=== PATIENT | male | born 1950 | race Caucasian/White ===

== ENCOUNTER 2017-09-05 16:50 | Inpatient (IN) | payer MEDICARE ==
[~2017-09-05] VITALS: Ht 185.4 cm; Wt 84.9 kg
--- NOTE | 2017-09-05 17:23 | EKG ---
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
[2017-09-05 17:29] LABS: BASO # 0.1 x10^3/uL (0.0-0.2); BASO % 1 % (0-3); EOS # 0.3 x10^3/uL (0.0-0.7); EOS % 3 % (0-3); HEMATOCRIT 43.3 % (39.0-53.0); HEMOGLOBIN 14.8 g/dL (13.0-17.5); LYMPH # 1.5 x10^3/uL (1.0-4.8); LYMPH % 19 % (24-48); MEAN CORPUSCULAR HEMOGLOBIN 33 pg (25-35); MEAN CORPUSCULAR HGB CONC 34 g/dL (31-37); MEAN CORPUSCULAR VOLUME 95 fL (79-100); MONO # 1.2 x10^3/uL (0.0-1.1); MONO % 16 % (0-9); NEUT # 4.7 x10^3uL (1.8-7.7); NEUT % 61 % (31-73); PLATELET COUNT 185 x10^3/uL (140-400); RED BLOOD COUNT 4.54 x10^6/uL (4.30-5.70); RED CELL DISTRIBUTION WIDTH 13.7 % (11.5-14.5); WHITE BLOOD COUNT 7.8 x10^3/uL (4.0-11.0)
[2017-09-05 17:35] LABS: BACTERIA,URINE 0 /HPF (0-FEW); BILIRUBIN,URINE NEG (NEG); CLARITY,URINE CLEAR; COLOR,URINE YELLOW; GLUCOSE,URINE NEG (NEG); NITRITE,URINE NEG (NEG); RBC,URINE 0 /HPF (0-2); UROBILINOGEN,URINE 0.2 mg/dL (0.2 mg/dL); WBC,URINE 0 /HPF (0-4)
[2017-09-05 17:39] LABS: ALBUMIN/GLOBULIN RATIO 0.8 (1.0-1.7); CALCIUM 9.1 mg/dL (8.5-10.1); CREATININE 1.5 mg/dL (0.7-1.3); GFR 46.7; MAGNESIUM 2.1 mg/dL (1.8-2.4); POTASSIUM 4.2 mmol/L (3.5-5.1); TOTAL BILIRUBIN 0.5 mg/dL (0.2-1.0); TOTAL PROTEIN 6.9 g/dL (6.4-8.2)
--- NOTE | 2017-09-05 17:45 | PHYS DOC ---
Past History Past Medical History: Dementia, DVT Past Surgical History: Hip Replacement Alcohol Use: Occasionally Drug Use: None Adult General Chief Complaint Chief Complaint: PSYCH EVALUATION HPI HPI 66-year-old male patient resident of independent living home brought in by his mother because of increasing agitation and behavioral problem for senior psych placement and medical clearance. Patient denies any problem and suicidal and homicidal ideation or hallucination. Review of Systems Review of Systems Constitutional: Denies fever or chills [] Eyes: Denies change in visual acuity, redness, or eye pain [] HENT: Denies nasal congestion or sore throat [] Respiratory: Denies cough or shortness of breath [] Cardiovascular: No additional information not addressed in HPI [] GI: Denies abdominal pain, nausea, vomiting, bloody stools or diarrhea [] : Denies dysuria or hematuria [] Musculoskeletal: Denies back pain or joint pain [] Integument: Denies rash or skin lesions [] Neurologic: Denies headache, focal weakness or sensory changes [] Endocrine: Denies polyuria or polydipsia [] All other systems were reviewed and found to be within normal limits, except as documented in this note. Allergies Allergies Allergies Coded Allergies Type Severity Reaction Last Updated Verified No Known Drug Allergies 09/05/17 No Physical Exam Physical Exam Constitutional: Well nourished, no acute distress, non-toxic appearance. [] HENT: Normocephalic, atraumatic, oropharynx moist, no oral exudates, nose normal. [] Eyes: PERRLA, EOMI, conjunctiva normal, no discharge. [] Neck: Normal range of motion, no tenderness, supple, no stridor. [] Cardiovascular:Heart rate regular rhythm, no murmur [] Lungs & Thorax: Bilateral breath sounds clear to auscultation [] Abdomen: Bowel sounds normal, soft, no tenderness, no masses, no pulsatile masses. [] Skin: Warm, dry, no erythema, no rash. [] Back: No tenderness, no CVA tenderness. [] Extremities: No tenderness, no cyanosis, no clubbing, ROM intact, bilateral lower extremity edema as a chronic problem Neurologic: Alert and oriented X 3, normal motor function, normal sensory function, no focal deficits noted. [] Psychologic: Affect normal, judgement normal, mood normal. [] Current Patient Data Vital Signs Vital Signs Date Time Temp Pulse Resp B/P (MAP) Pulse Ox O2 Delivery O2 Flow Rate FiO2 09/05/17 17:17 98.1 74 18 97 Room Air Lab Results Laboratory Tests Test 09/05/17 17:06 09/05/17 17:08 White Blood Count 7.8 x10^3/uL (4.0-11.0) Red Blood Count 4.54 x10^6/uL (4.30-5.70) Hemoglobin 14.8 g/dL (13.0-17.5) Hematocrit 43.3 % (39.0-53.0) Mean Corpuscular Volume 95 fL (79-100) Mean Corpuscular Hemoglobin 33 pg (25-35) Mean Corpuscular Hemoglobin Concent 34 g/dL (31-37) Red Cell Distribution Width 13.7 % (11.5-14.5) Platelet Count 185 x10^3/uL (140-400) Neutrophils (%) (Auto) 61 % (31-73) Lymphocytes (%) (Auto) 19 % (24-48) L Monocytes (%) (Auto) 16 % (0-9) H Eosinophils (%) (Auto) 3 % (0-3) Basophils (%) (Auto) 1 % (0-3) Neutrophils # (Auto) 4.7 x10^3uL (1.8-7.7) Lymphocytes # (Auto) 1.5 x10^3/uL (1.0-4.8) Monocytes # (Auto) 1.2 x10^3/uL (0.0-1.1) H Eosinophils # (Auto) 0.3 x10^3/uL (0.0-0.7) Basophils # (Auto) 0.1 x10^3/uL (0.0-0.2) Urine Collection Type Unknown Urine Color Yellow Urine Clarity Clear Urine pH 7.5 Urine Specific [place] 1.015 Urine Protein Neg (NEG-TRACE) Urine Glucose (UA) Neg mg/dL (NEG) Urine Ketones (Stick) Neg mg/dL (NEG) Urine Blood Neg (NEG) Urine Nitrite Neg (NEG) Urine Bilirubin Neg (NEG) Urine Urobilinogen Dipstick 0.2 mg/dL (0.2 mg/dL) Urine Leukocyte Esterase Neg (NEG) Urine RBC 0 /HPF (0-2) Urine WBC 0 /HPF (0-4) Urine Squamous Epithelial Cells None /LPF Urine Bacteria 0 /HPF (0-FEW) EKG EKG EKG interpreted by me. EKG at 1716 showed normal sinus rhythm at rate of 65, poor R-wave progress in anteroseptal leads, no acute ST and T-wave abnormalities [] Radiology/Procedures Radiology/Procedures [] Course & Med Decision Making Course & Med Decision Making Evaluation of patient in ER showed 66-year-old male patient brought in by family member for medical clearance for senior [facility] admission. Patient denies suicidal and homicidal ideation and had unremarkable physical exam and labs. Dragon Disclaimer Dragon Disclaimer This electronic medical record was generated, in whole or in part, using a voice recognition dictation system. Departure Departure: Impression: Primary Impression: Medical clearance for psychiatric admission Disposition: ADMITTED INPATIENT (at 1744) Condition: STABLE Referrals: NON,STAFF (PCP) RAJ SHELDON MD Sep 05, 2017 17:45
[2017-09-05] MEDS ORDERED: METHYL SALICYLATE/MENTHOL TOPICAL OINTMENT 29GM TUBE. TP PRN (19:00)
[2017-09-05] MEDS ORDERED: MAGNESIUM HYDROXIDE 2,400 MG/30 ML ORAL.SUSP. PO PRN (19:00)
[2017-09-05] MEDS ORDERED: MAG HYDROX/AL HYDROX/SIMETH 30 ML ORAL.SUSP PO PRN (19:00)
[2017-09-05] MEDS ORDERED: SENN-79 PO (19:48)
[2017-09-05] MEDS ORDERED: MULT1TAB52 PO (19:48)
[2017-09-05] MEDS ORDERED: DIVA500T2 PO (19:48)
[2017-09-05] MEDS ORDERED: CITA20TA6 PO (19:48)
[2017-09-05] MEDS ORDERED: LEVO175T5 PO (19:48)
[2017-09-05] MEDS ORDERED: MELA3TAB2 PO (19:48)
[2017-09-05] MEDS ORDERED: CALC-98 PO (19:48)
[2017-09-05] MEDS ORDERED: QUET50TA5 PO (19:48)
[2017-09-05] MEDS ORDERED: FENO48TA16 PO (19:48)
[2017-09-05] MEDS ORDERED: DICL100G18 TP (19:48)
[2017-09-05] MEDS ORDERED: MAGN400T3 PO (19:48)
[2017-09-05] MEDS ORDERED: DONE5TAB7 PO (19:48)
[2017-09-05] MEDS ORDERED: UBID100C PO (19:48)
[2017-09-05] MEDS ORDERED: RIVA10TA PO (19:48)
[2017-09-05] MEDS ORDERED: MEMA10TA PO (19:48)
[2017-09-05] MEDS ORDERED: CYAN10005 PO (19:48)
[2017-09-05] MEDS ORDERED: OMEP20TA8 PO (19:48)
[2017-09-05] MEDS ORDERED: TRAZ-85 PO (19:48)
[2017-09-05] MEDS ORDERED: DIVA-53 PO (19:48)
[2017-09-05] MEDS ORDERED: KETO120S TP (19:48)
[2017-09-05] MEDS ORDERED: DOCU100C28 PO (19:48)
[2017-09-05] MEDS ORDERED: HYDR28CR62 TP (19:48)
--- NOTE | 2017-09-05 20:00 | PDOC ---
Exam Note: Jean Marie Note: Please also refer to the separate dictated note~for this date of service dictated separately.~Patient seen individually. Discussed the patient with Nursing staff reviewed the chart.~Reviewed interim history and current functioning. Reviewed vital signs,~Labs/ Radiology~and current medications noted below. Continue current treatment with the changes noted in the dictated addendum note Assessment: Vital Signs: Vital Signs Date Time Temp Pulse Resp B/P (MAP) Pulse Ox O2 Delivery O2 Flow Rate FiO2 09/05/17 17:17 98.1 74 18 97 Room Air Labs: Laboratory Tests Test 09/05/17 17:06 09/05/17 17:08 White Blood Count 7.8 x10^3/uL (4.0-11.0) Red Blood Count 4.54 x10^6/uL (4.30-5.70) Hemoglobin 14.8 g/dL (13.0-17.5) Hematocrit 43.3 % (39.0-53.0) Mean Corpuscular Volume 95 fL (79-100) Mean Corpuscular Hemoglobin 33 pg (25-35) Mean Corpuscular Hemoglobin Concent 34 g/dL (31-37) Red Cell Distribution Width 13.7 % (11.5-14.5) Platelet Count 185 x10^3/uL (140-400) Neutrophils (%) (Auto) 61 % (31-73) Lymphocytes (%) (Auto) 19 % (24-48) L Monocytes (%) (Auto) 16 % (0-9) H Eosinophils (%) (Auto) 3 % (0-3) Basophils (%) (Auto) 1 % (0-3) Neutrophils # (Auto) 4.7 x10^3uL (1.8-7.7) Lymphocytes # (Auto) 1.5 x10^3/uL (1.0-4.8) Monocytes # (Auto) 1.2 x10^3/uL (0.0-1.1) H Eosinophils # (Auto) 0.3 x10^3/uL (0.0-0.7) Basophils # (Auto) 0.1 x10^3/uL (0.0-0.2) Sodium Level 142 mmol/L (136-145) Potassium Level 4.2 mmol/L (3.5-5.1) Chloride Level 102 mmol/L (98-107) Carbon Dioxide Level 28 mmol/L (21-32) Anion Gap 12 (6-14) Blood Urea Nitrogen 15 mg/dL (8-26) Creatinine 1.5 mg/dL (0.7-1.3) H Estimated GFR (Cockcroft-Gault) 46.7 BUN/Creatinine Ratio 10 (6-20) Glucose Level 78 mg/dL (70-99) Calcium Level 9.1 mg/dL (8.5-10.1) Magnesium Level 2.1 mg/dL (1.8-2.4) Total Bilirubin 0.5 mg/dL (0.2-1.0) Aspartate Amino Transferase (AST) 42 U/L (15-37) H Alanine Aminotransferase (ALT) 34 U/L (16-63) Alkaline Phosphatase 71 U/L (46-116) Total Protein 6.9 g/dL (6.4-8.2) Albumin 3.0 g/dL (3.4-5.0) L Albumin/Globulin Ratio 0.8 (1.0-1.7) L Urine Collection Type Unknown Urine Color Yellow Urine Clarity Clear Urine pH 7.5 Urine Specific [place] 1.015 Urine Protein Neg (NEG-TRACE) Urine Glucose (UA) Neg mg/dL (NEG) Urine Ketones (Stick) Neg mg/dL (NEG) Urine Blood Neg (NEG) Urine Nitrite Neg (NEG) Urine Bilirubin Neg (NEG) Urine Urobilinogen Dipstick 0.2 mg/dL (0.2 mg/dL) Urine Leukocyte Esterase Neg (NEG) Urine RBC 0 /HPF (0-2) Urine WBC 0 /HPF (0-4) Urine Squamous Epithelial Cells None /LPF Urine Bacteria 0 /HPF (0-FEW) Current Medications: Meds: Current Medications Acetaminophen (Tylenol) 650 mg PRN Q6HRS PRN PO PAIN / TEMP; Start 09/05/17 at 19:00 Multi-Ingredient Ointment (Analgesic [place]) 1 corina PRN QID PRN TP MUSCLE PAIN; Start 09/05/17 at 19:00 Al Hydroxide/Mg Hydroxide (Mylanta Plus Xs) 15 ml PRN AFTMEALHC PRN PO DYSPEPSIA; Start 09/05/17 at 19:00 Magnesium Hydroxide (Milk Of Magnesia) 2,400 mg PRN QHS PRN PO CONSTIPATION; Start 09/05/17 at 19:00 Citalopram Hydrobromide (CeleXA) 20 mg DAILY PO ; Start 09/06/17 at 09:00; Status UNV Donepezil HCl (Aricept) 5 mg DAILY PO ; Start 09/06/17 at 09:00; Status UNV Non-Formulary Medication (Divalproex Sodium ) 750 mg QEVNG PO ; Start 09/06/17 at 18:00; Status UNV Non-Formulary Medication (Divalproex Sodium (Depakote)) 500 mg BID PO ; Start at 21:00; Status UNV Non-Formulary Medication (Melatonin ) 3 mg DAILY PO ; Start 09/06/17 at 09:00; Status UNV Non-Formulary Medication (Memantine Hcl (Namenda)) 10 mg BID PO ; Start at 21:00; Status UNV Non-Formulary Medication (Quetiapine Fumarate (Seroquel)) 50 mg QHS PO ; Start 09/05/17 at 21:00; Status UNV Non-Formulary Medication (Trazodone Hcl ) 50 mg QHS PO ; Start 09/05/17 at 21:00 ; Status UNV Active Scripts Active Reported Vitamin B-12 (Cyanocobalamin (Vitamin B-12)) 1,000 Mcg Tablet 1,000 Mcg PO Ketoconazole 120 Ml Shampoo 1 Corina TP DAILY Divalproex Sodium 500 Mg Tablet.dr 750 Mg PO QEVNG Voltaren (Diclofenac Sodium) 100 Gm Gel..gram. 4 Gm TP PRN TID PRN Multivitamins (Multivitamin) 1 Each Tablet 1 Tab PO DAILY Trazodone Hcl 50 Mg Tablet 50 Mg PO QHS Senna (Sennosides) 8.6 Mg Tablet 8.6 Mg PO DAILY Xarelto (Rivaroxaban) 10 Mg Tablet 15 Mg PO DAILY Seroquel (Quetiapine Fumarate) 50 Mg Tablet 50 Mg PO QHS Omeprazole 20 Mg Tablet.dr 20 Mg PO DAILY Namenda (Memantine Hcl) 10 Mg Tablet 10 Mg PO BID Melatonin 3 Mg Tablet 3 Mg PO DAILY Magnesium Oxide 400 Mg Tablet 400 Mg PO DAILY Levothyroxine Sodium 175 Mcg Tablet 175 Mcg PO DAILY07 Cortizone-10 1% Creme (Hydrocortisone/Aloe Vera) 28 Gm Cream..g. 1 Corina TP BID Tricor (Fenofibrate Nanocrystallized) 48 Mg Tablet 48 Mg PO DAILY Donepezil Hcl 5 Mg Tablet 5 Mg PO DAILY 5 Days Docusate Sodium 100 Mg Capsule 100 Mg PO BID Depakote (Divalproex Sodium) 500 Mg Tablet.dr 500 Mg PO BID Coenzyme Q10 (Ubidecarenone) 100 Mg Capsule 100 Mg PO DAILY Citalopram Hbr (Citalopram Hydrobromide) 20 Mg Tablet 20 Mg PO DAILY Calcium + Vitamin D Tablet (Calcium Carbonate/Vitamin D3) 1 Each Tablet 1 Tab PO BID I have reviewed the current psychotropics carefully including drug interactions. Risk benefit ratio favors no change other than as noted in my dictated progress note. Diagnosis: Problems: (1) Anxiety disorder (2) Major neurocognitive disorder (3) Major depressive disorder, recurrent episode (4) Frontotemporal dementia with behavioral disturbance YONI LAURA MD Sep 05, 2017 20:00
[2017-09-05] MEDS: HYDROCORTISONE 1% TOPICAL CREAM 30GM TUBE. TP SCH (21:00)
[2017-09-05] MEDS: QUEtiapine 50 MG TABLET. PO SCH (21:50)
[2017-09-05] MEDS: DIVALPROEX ER 250 MG TAB.ER.24H. PO SCH (21:51)
[2017-09-05] MEDS: MEMANTINE 10 MG TABLET. PO SCH (21:51)
[2017-09-05] MEDS: traZODone 50 MG TABLET. PO SCH (21:51)
[2017-09-05] MEDS: DIVALPROEX ER 500 MG TAB.ER.24H PO SCH (21:52)
[2017-09-05] MEDS: DOCUSATE SODIUM 100 MG CAPSULE PO SCH (21:52)
[2017-09-05] MEDS: MELATONIN 3 MG TABLET PO SCH (21:52)
[2017-09-06 00:53] VITALS: BP 141/80
[2017-09-06 05:48] VITALS: BP 124/65
[2017-09-06] MEDS: LEVOTHYROXINE 175 MCG TABLET PO SCH (06:22)
[2017-09-06 07:32] LABS: VAL ACID 63 mcg/mL (50-100)
[2017-09-06] MEDS: DOCUSATE SODIUM 100 MG CAPSULE PO SCH ×2 (08:07→19:43)
[2017-09-06] MEDS: MEMANTINE 10 MG TABLET. PO SCH ×2 (08:07→19:43)
[2017-09-06] MEDS: RIVAROXABAN 15 MG TABLET. PO SCH (08:12)
[2017-09-06] MEDS: MULTIVITAMIN with MINERAL TABLET. PO SCH (08:12)
[2017-09-06] MEDS: CALCIUM CARB/VIT D3 500/200 TABLET PO SCH ×2 (08:12→17:09)
[2017-09-06] MEDS: MAGNESIUM OXIDE 400 MG TABLET PO SCH (08:13)
[2017-09-06] MEDS: DIVALPROEX ER 250 MG TAB.ER.24H. PO SCH ×2 (08:13→19:43)
[2017-09-06] MEDS: UBIDECARENONE 50 MG CAPSULE. PO SCH (08:13)
[2017-09-06] MEDS: DONEPEZIL HCL 5 MG TABLET. PO SCH (08:13)
[2017-09-06] MEDS: SENNOSIDES 8.6 MG TABLET PO SCH (08:13)
[2017-09-06] MEDS: PANTOPRAZOLE 40 MG TABLET. PO SCH (08:13)
[2017-09-06] MEDS: HYDROCORTISONE 1% TOPICAL CREAM 30GM TUBE. TP SCH ×2 (08:15→19:45)
[2017-09-06] MEDS: KETOCONAZOLE 2% SHAMPOO 120ML BOTTLE. TP SCH (08:15)
[2017-09-06] MEDS: FENOFIBRATE NANOCRYSTALLIZED 48 MG TABLET PO SCH (08:16)
[2017-09-06] MEDS ORDERED: CITALOPRAM 20 MG TABLET. PO SCH (09:00)
[2017-09-06 14:52] LABS: THYROID STIM HORMONE (TSH) 1.3 uIU/mL (0.358-3.740)
[2017-09-06] MEDS ORDERED: DIVA-51 PO (15:11)
[2017-09-06 15:59] VITALS: BP 134/72
--- NOTE | 2017-09-06 16:16 | HP ---
ADMIT DATE: 09/05/2017 PSYCHIATRIC HISTORY AND EVALUATION This is a late entry, 09/05/2017, covers elements not covered in my initial note. I met with the patient in the evening of 09/05/2017, in his room at length for this evaluation, discussed with nursing staff, reviewed the chart. I also discussed with Corie Tejeda RN, prior to the patient's admission after he was referred to us by Dr. Wild Kang, his primary care physician; Dr. Jc Núñez, psychiatrist, having failed outpatient psychiatric interventions at the [facility] in [place], where he has been residing for about 1 year. The patient is having significant problems with impulse control. He is extremely explosive. He threw a cane and keys, etc., in anger. He could hurt someone at the facility. He has failed a prior inpatient psychiatric hospitalization at [facility] and is referred for inpatient psychiatric stabilization for his above symptoms additionally of depression within the context of frontotemporal dementia. CHIEF COMPLAINT: "I was diagnosed with FTD 6 years ago by a psychiatrist in [place]. I was told I had 6 months to 2 years to live. My 1 year ago and anniversary is coming up. I get angry." HISTORY OF PRESENT ILLNESS: The patient reportedly has had a diagnosis of frontotemporal dementia for the past 6 years and had been living at the [facility] with his for over a year and then she about a year back. He has continued to live there and recently getting more depressed, angry, aggressive, disruptive and paranoid. Social skills have been poor, consistent with his frontotemporal dementia diagnosis. No clear history of bipolar disorder, suicidal or homicidal ideation. In addition to all of the above, the patient had been smearing fecal matter on the tafoya, making sexually inappropriate gestures and comments to the nursing staff, having verbal outburst, demanding. He was irritable and as noted, threw a cane and was having explosive outbursts at the facility resulting in this referral. PAST PSYCHIATRIC HISTORY: As above. PAST MEDICAL HISTORY: Positive for DVT, osteoporosis, chronic kidney disease, hearing loss, questionable bipolar disorder, hypertension. DIET: Regular. MEDICATIONS: Takes medications whole. ACTIVITY: Ambulates with walker. CODE STATUS: Full code. DRUG ALLERGIES: Negative. CURRENT PSYCHOTROPICS: Celexa 20 mg a day, Depakote delayed release 500 b.i.d., Aricept 10 mg a day, melatonin 3 mg at bedtime, Namenda 10 b.i.d., Seroquel 50 at bedtime, trazodone 50 at bedtime. FAMILY HISTORY: Noncontributory. SOCIAL HISTORY: No alcohol, drug abuse, physical, sexual or elder abuse history is noted. He is not known to be a perpetrator. REACTION TO HOSPITALIZATION: The patient accepting of it. ASSETS: Supportive family. His daughter is his DPOA. MENTAL STATUS EXAM: The patient was seen individually evening of 09/05/2017, in his room at length shortly after he arrived on the unit. He was aware of the date, year and where he was, when he came here and from where. He was able to do only one step on serial sevens, able to spell world forward and backward, no errors, somewhat paranoid, suspicious. Attention span short. Language function intact. Social skills poor, consistent with his diagnosis. No active suicidal or homicidal ideation. Mood and affect somewhat labile. LABORATORY DATA: Reviewed. IMPRESSION: Probable bipolar 1 disorder, mixed with psychotic features; major depressive disorder with psychotic features; anxiety disorder, unspecified; major neurocognitive disorder secondary to frontotemporal degeneration with delusion, depression, behavioral disturbance; impulse control disorder, unspecified. Rest as above. PLAN: Admit to Geropsychiatry Unit at [facility]. I will see the patient daily individually from a psychiatric standpoint, medical followup per Dr. Villarrael/Dr. Avila. We will get his past psychiatric records. Continue current psychotropics, follow labs and the Depakojerod, may need to adjust Seroquel which is 50 mg at bedtime. Continue trazodone 50 mg at bedtime, Namenda 10 b.i.d., melatonin 3 at bedtime, Aricept 10 mg at bedtime, Celexa 20 mg a day, Depakojerod DR 500 b.i.d. Adjust further as clinically indicated. YONI LAURA MD DR: JAMES/nohelia JOB#: [id number] / [id number]
[2017-09-06] MEDS: MELATONIN 3 MG TABLET PO SCH (19:42)
[2017-09-06] MEDS: DIVALPROEX ER 500 MG TAB.ER.24H PO SCH (19:43)
[2017-09-06] MEDS: traZODone 50 MG TABLET. PO SCH (19:43)
[2017-09-06] MEDS: QUEtiapine 50 MG TABLET. PO SCH (19:43)
[2017-09-06 20:11] LABS: THYROXINE 7.5 ug/dL (4.5-12.0)
--- NOTE | 2017-09-06 20:58 | PDOC ---
Exam Note: Jean Marie Note: Please also refer to the separate dictated note~for this date of service dictated separately.~Patient seen individually. Discussed the patient with Nursing staff reviewed the chart.~Reviewed interim history and current functioning. Reviewed vital signs,~Labs/ Radiology~and current medications noted below. Continue current treatment with the changes noted in the dictated addendum note Assessment: Vital Signs: Vital Signs Date Time Temp Pulse Resp B/P (MAP) Pulse Ox O2 Delivery O2 Flow Rate FiO2 09/06/17 15:59 98.0 75 18 134/72 (92) 98 09/05/17 17:17 Room Air I&O Intake and Output 09/06/17 07:00 Intake Total 240 ml Balance 240 ml Intake Oral 240 ml # Voids 1 Labs: Laboratory Tests Test 09/06/17 07:01 Valproic Acid Level 63 mcg/mL (50-100) Valproic Acid Last Dose Date 09/05/17 Valproic Acid Last Dose Time 2100 Current Medications: Meds: Current Medications Acetaminophen (Tylenol) 650 mg PRN Q6HRS PRN PO PAIN / TEMP; Start 09/05/17 at 19:00 Multi-Ingredient Ointment (Analgesic [place]) 1 corina PRN QID PRN TP MUSCLE PAIN; Start 09/05/17 at 19:00 Al Hydroxide/Mg Hydroxide (Mylanta Plus Xs) 15 ml PRN AFTMEALHC PRN PO DYSPEPSIA; Start 09/05/17 at 19:00 Magnesium Hydroxide (Milk Of Magnesia) 2,400 mg PRN QHS PRN PO CONSTIPATION; Start 09/05/17 at 19:00 Citalopram Hydrobromide (CeleXA) 20 mg DAILY PO Last administered on 09/06/17at 08:12; Start 09/06/17 at 09:00; Stop 09/06/17 at 16:29; Status DC Donepezil HCl (Aricept) 5 mg DAILY PO Last administered on 09/06/17at 08:13; Start 09/06/17 at 09:00; Stop 09/09/17 at 08:59 Divalproex Sodium (Depakote Er) 500 mg DAILY PO Last administered on 09/06/17at 08:13; Start 09/06/17 at 09:00 Divalproex Sodium (Depakote Er) 500 mg QHS PO Last administered on 09/06/17 19: 43; Start 09/05/17 at 21:00 Melatonin 3 mg QHS PO Last administered on 09/06/17 19:42; Start 09/05/17 at 21 :00 Memantine (Namenda) 10 mg BID PO Last administered on 09/06/17 19:43; Start at 21:00 Quetiapine Fumarate (SEROquel) 50 mg QHS PO Last administered on 09/06/17 19:43 ; Start 09/05/17 at 21:00 Trazodone HCl (Desyrel) 50 mg QHS PO Last administered on 09/06/17 19:43; Start 09/05/17 at 21:00 Divalproex Sodium (Depakote Er) 250 mg QHS PO Last administered on 09/06/17 19: 43; Start 09/05/17 at 21:00 Diclofenac Sodium (Voltaren) 4 corina PRN TID PRN TP PAIN; Start 09/05/17 at 20:00 Ketoconazole (Nizoral 2% Shampoo) 1 corina DAILY TP Last administered on 09/06/17 08:15; Start 09/06/17 at 09:00 Levothyroxine Sodium (Synthroid) 175 mcg DAILY07 PO Last administered on 06:22; Start 09/06/17 at 07:00 Rivaroxaban (Xarelto) 15 mg DAILY PO Last administered on 09/06/17 08:12; Start 09/06/17 at 09:00 Calcium/Vitamin D (Oscal D 500mg/ 200uts) 1 tab BIDWMEALS PO Last administered on 09/06/17 17:09; Start 09/06/17 at 08:00 Docusate Sodium (Colace) 100 mg BID PO Last administered on 09/06/17 19:43; Start 09/05/17 at 21:00 Fenofibrate (Tricor) 48 mg DAILY PO Last administered on 09/06/17 08:16; Start 09/06/17 at 09:00 Hydrocortisone (Cortaid) 1 corina BID TP Last administered on 09/06/17 19:45; Start 09/05/17 at 21:00 Magnesium Oxide (Magnesium Oxide) 400 mg DAILY PO Last administered on at 08:13; Start 09/06/17 at 09:00 Multivitamins/ Calcium (Thera-M Plus) 1 tab DAILY PO Last administered on at 08:12; Start 09/06/17 at 09:00 Pantoprazole Sodium (Protonix) 40 mg DAILYAC PO Last administered on 09/06/17at 08:13; Start 09/06/17 at 07:30 Sennosides (Senna) 8.6 mg DAILY PO Last administered on 09/06/17at 08:13; Start 09/06/17 at 09:00 Coenzyme Q10 (Coenzyme Q10) 100 mg DAILY PO Last administered on 09/06/17at 08:13 ; Start 09/06/17 at 09:00 Sertraline HCl (Zoloft) 50 mg DAILY PO ; Start 09/07/17 at 09:00 Active Scripts Active Reported Divalproex Sodium 250 Mg Tablet.dr 250 Mg PO QHS Vitamin B-12 (Cyanocobalamin (Vitamin B-12)) 1,000 Mcg Tablet 1,000 Mcg PO Ketoconazole 120 Ml Shampoo 1 Corina TP DAILY Voltaren (Diclofenac Sodium) 100 Gm Gel..gram. 4 Gm TP PRN TID PRN Multivitamins (Multivitamin) 1 Each Tablet 1 Tab PO DAILY Trazodone Hcl 50 Mg Tablet 50 Mg PO QHS Senna (Sennosides) 8.6 Mg Tablet 8.6 Mg PO DAILY Xarelto (Rivaroxaban) 10 Mg Tablet 15 Mg PO DAILY Seroquel (Quetiapine Fumarate) 50 Mg Tablet 50 Mg PO QHS Omeprazole 20 Mg Tablet.dr 20 Mg PO DAILY Namenda (Memantine Hcl) 10 Mg Tablet 10 Mg PO BID Melatonin 3 Mg Tablet 3 Mg PO DAILY Magnesium Oxide 400 Mg Tablet 400 Mg PO DAILY Levothyroxine Sodium 175 Mcg Tablet 175 Mcg PO DAILY07 Cortizone-10 1% Creme (Hydrocortisone/Aloe Vera) 28 Gm Cream..g. 1 Cor[place] TP BID Tricor (Fenofibrate Nanocrystallized) 48 Mg Tablet 48 Mg PO DAILY Donepezil Hcl 5 Mg Tablet 5 Mg PO DAILY 5 Days Docusate Sodium 100 Mg Capsule 100 Mg PO BID Depakote (Divalproex Sodium) 500 Mg Tablet.dr 500 Mg PO BID Coenzyme Q10 (Ubidecarenone) 100 Mg Capsule 100 Mg PO DAILY Citalopram Hbr (Citalopram Hydrobromide) 20 Mg Tablet 20 Mg PO DAILY Calcium + Vitamin D Tablet (Calcium Carbonate/Vitamin D3) 1 Each Tablet 1 Tab PO BID I have reviewed the current psychotropics carefully including drug interactions. Risk benefit ratio favors no change other than as noted in my dictated progress note. Diagnosis: Problems: (1) Anxiety disorder (2) Major neurocognitive disorder (3) Major depressive disorder, recurrent episode (4) Frontotemporal dementia with behavioral disturbance YONI LAURA MD Sep 06, 2017 20:58
[2017-09-07 02:09] LABS: HEMOGLOBIN A1C 4.5 % (4.8-5.6)
[2017-09-07] MEDS: LEVOTHYROXINE 175 MCG TABLET PO SCH (05:59)
[2017-09-07 06:00] VITALS: BP 109/64
[2017-09-07] MEDS: MULTIVITAMIN with MINERAL TABLET. PO SCH (07:38)
[2017-09-07] MEDS: DOCUSATE SODIUM 100 MG CAPSULE PO SCH ×2 (07:38→19:34)
[2017-09-07] MEDS: RIVAROXABAN 15 MG TABLET. PO SCH (07:38)
[2017-09-07] MEDS: SENNOSIDES 8.6 MG TABLET PO SCH (07:38)
[2017-09-07] MEDS: MAGNESIUM OXIDE 400 MG TABLET PO SCH (07:38)
[2017-09-07] MEDS: DIVALPROEX ER 250 MG TAB.ER.24H. PO SCH ×2 (07:39→19:34)
[2017-09-07] MEDS: CALCIUM CARB/VIT D3 500/200 TABLET PO SCH ×2 (07:39→17:58)
[2017-09-07] MEDS: FENOFIBRATE NANOCRYSTALLIZED 48 MG TABLET PO SCH (07:39)
[2017-09-07] MEDS: MEMANTINE 10 MG TABLET. PO SCH ×2 (07:39→19:35)
[2017-09-07] MEDS: PANTOPRAZOLE 40 MG TABLET. PO SCH (07:39)
[2017-09-07] MEDS: DONEPEZIL HCL 5 MG TABLET. PO SCH (07:39)
[2017-09-07] MEDS: DICLOFENAC SODIUM 1% TOPICAL GEL 100GM TUBE. TP PRN (07:47)
[2017-09-07] MEDS: HYDROCORTISONE 1% TOPICAL CREAM 30GM TUBE. TP SCH ×2 (07:53→20:33)
[2017-09-07] MEDS: SERTRALINE 50 MG TABLET. PO SCH (07:53)
[2017-09-07] MEDS: KETOCONAZOLE 2% SHAMPOO 120ML BOTTLE. TP SCH (07:53)
[2017-09-07] MEDS: UBIDECARENONE 50 MG CAPSULE. PO SCH (07:54)
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
[2017-09-07 16:03] VITALS: BP 138/80
[2017-09-07] MEDS: MELATONIN 3 MG TABLET PO SCH (19:34)
[2017-09-07] MEDS: DIVALPROEX ER 500 MG TAB.ER.24H PO SCH (19:34)
[2017-09-07] MEDS: traZODone 50 MG TABLET. PO SCH (19:35)
[2017-09-07] MEDS: ACETAMINOPHEN 325 MG TABLET PO PRN (20:23)
[2017-09-07] MEDS: QUEtiapine 50 MG TABLET. PO SCH (20:34)
--- NOTE | 2017-09-07 21:00 | PDOC ---
Exam Note: Jean Marie Note: Please also refer to the separate dictated note~for this date of service dictated separately.~Patient seen individually. Discussed the patient with Nursing staff reviewed the chart.~Reviewed interim history and current functioning. Reviewed vital signs,~Labs/ Radiology~and current medications noted below. Continue current treatment with the changes noted in the dictated addendum note Assessment: Vital Signs: Vital Signs Date Time Temp Pulse Resp B/P (MAP) Pulse Ox O2 Delivery O2 Flow Rate FiO2 09/07/17 16:03 97.9 68 20 138/80 (99) 97 09/05/17 17:17 Room Air I&O Intake and Output 09/07/17 07:00 Intake Total 1320 ml Balance 1320 ml Intake Oral 1320 ml Current Medications: Meds: Current Medications Acetaminophen (Tylenol) 650 mg PRN Q6HRS PRN PO PAIN / TEMP Last administered on 09/07/17 20:23; Start 09/05/17 at 19:00 Multi-Ingredient Ointment (Analgesic [place]) 1 corina PRN QID PRN TP MUSCLE PAIN; Start 09/05/17 at 19:00 Al Hydroxide/Mg Hydroxide (Mylanta Plus Xs) 15 ml PRN AFTMEALHC PRN PO DYSPEPSIA; Start 09/05/17 at 19:00 Magnesium Hydroxide (Milk Of Magnesia) 2,400 mg PRN QHS PRN PO CONSTIPATION; Start 09/05/17 at 19:00 Citalopram Hydrobromide (CeleXA) 20 mg DAILY PO Last administered on 09/06/17at 08:12; Start 09/06/17 at 09:00; Stop 09/06/17 at 16:29; Status DC Donepezil HCl (Aricept) 5 mg DAILY PO Last administered on 09/07/17 07:39; Start 09/06/17 at 09:00; Stop 09/09/17 at 08:59 Divalproex Sodium (Depakote Er) 500 mg DAILY PO Last administered on 09/07/17 07:39; Start 09/06/17 at 09:00 Divalproex Sodium (Depakote Er) 500 mg QHS PO Last administered on 09/07/17 19: 34; Start 09/05/17 at 21:00 Melatonin 3 mg QHS PO Last administered on 09/07/17 19:34; Start 09/05/17 at 21 :00 Memantine (Namenda) 10 mg BID PO Last administered on 09/07/17 19:35; Start at 21:00 Quetiapine Fumarate (SEROquel) 50 mg QHS PO Last administered on 09/06/17 19:43 ; Start 09/05/17 at 21:00; Stop 09/07/17 at 11:43; Status DC Trazodone HCl (Desyrel) 50 mg QHS PO Last administered on 09/07/17 19:35; Start 09/05/17 at 21:00 Divalproex Sodium (Depakote Er) 250 mg QHS PO Last administered on 09/07/17 19: 34; Start 09/05/17 at 21:00 Diclofenac Sodium (Voltaren) 4 corina PRN TID PRN TP PAIN Last administered on 09/07 07:47; Start 09/05/17 at 20:00 Ketoconazole (Nizoral 2% Shampoo) 1 corina DAILY TP Last administered on 09/07/17 07:53; Start 09/06/17 at 09:00 Levothyroxine Sodium (Synthroid) 175 mcg DAILY07 PO Last administered on 05:59; Start 09/06/17 at 07:00 Rivaroxaban (Xarelto) 15 mg DAILY PO Last administered on 09/07/17 07:38; Start 09/06/17 at 09:00 Calcium/Vitamin D (Oscal D 500mg/ 200uts) 1 tab BIDWMEALS PO Last administered on 09/07/17 17:58; Start 09/06/17 at 08:00 Docusate Sodium (Colace) 100 mg BID PO Last administered on 09/07/17 19:34; Start 09/05/17 at 21:00 Fenofibrate (Tricor) 48 mg DAILY PO Last administered on 09/07/17 07:39; Start 09/06/17 at 09:00 Hydrocortisone (Cortaid) 1 corina BID TP Last administered on 09/07/17 20:33; Start 09/05/17 at 21:00 Magnesium Oxide (Magnesium Oxide) 400 mg DAILY PO Last administered on 07:38; Start 09/06/17 at 09:00 Multivitamins/ Calcium (Thera-M Plus) 1 tab DAILY PO Last administered on at 07:38; Start 09/06/17 at 09:00 Pantoprazole Sodium (Protonix) 40 mg DAILYAC PO Last administered on 09/07/17at 07:39; Start 09/06/17 at 07:30 Sennosides (Senna) 8.6 mg DAILY PO Last administered on 09/07/17at 07:38; Start 09/06/17 at 09:00 Coenzyme Q10 (Coenzyme Q10) 100 mg DAILY PO Last administered on 09/07/17at 07:54 ; Start 09/06/17 at 09:00 Sertraline HCl (Zoloft) 50 mg DAILY PO Last administered on 09/07/17 07:53; Start 09/07/17 at 09:00 Quetiapine Fumarate (SEROquel) 75 mg QHS PO Last administered on 09/07/17at 20:34 ; Start 09/07/17 at 21:00 Active Scripts Active Reported Divalproex Sodium 250 Mg Tablet.dr 250 Mg PO QHS Vitamin B-12 (Cyanocobalamin (Vitamin B-12)) 1,000 Mcg Tablet 1,000 Mcg PO Ketoconazole 120 Ml Shampoo 1 Corina TP DAILY Voltaren (Diclofenac Sodium) 100 Gm Gel..gram. 4 Gm TP PRN TID PRN Multivitamins (Multivitamin) 1 Each Tablet 1 Tab PO DAILY Trazodone Hcl 50 Mg Tablet 50 Mg PO QHS Senna (Sennosides) 8.6 Mg Tablet 8.6 Mg PO DAILY Xarelto (Rivaroxaban) 10 Mg Tablet 15 Mg PO DAILY Seroquel (Quetiapine Fumarate) 50 Mg Tablet 50 Mg PO QHS Omeprazole 20 Mg Tablet.dr 20 Mg PO DAILY Namenda (Memantine Hcl) 10 Mg Tablet 10 Mg PO BID Melatonin 3 Mg Tablet 3 Mg PO DAILY Magnesium Oxide 400 Mg Tablet 400 Mg PO DAILY Levothyroxine Sodium 175 Mcg Tablet 175 Mcg PO DAILY07 Cortizone-10 1% Creme (Hydrocortisone/Aloe Vera) 28 Gm Cream..g. 1 Corina TP BID Tricor (Fenofibrate Nanocrystallized) 48 Mg Tablet 48 Mg PO DAILY Donepezil Hcl 5 Mg Tablet 5 Mg PO DAILY 5 Days Docusate Sodium 100 Mg Capsule 100 Mg PO BID Depakote (Divalproex Sodium) 500 Mg Tablet.dr 500 Mg PO BID Coenzyme Q10 (Ubidecarenone) 100 Mg Capsule 100 Mg PO DAILY Citalopram Hbr (Citalopram Hydrobromide) 20 Mg Tablet 20 Mg PO DAILY Calcium + Vitamin D Tablet (Calcium Carbonate/Vitamin D3) 1 Each Tablet 1 Tab PO BID I have reviewed the current psychotropics carefully including drug interactions. Risk benefit ratio favors no change other than as noted in my dictated progress note. Diagnosis: Problems: (1) Anxiety disorder (2) Major neurocognitive disorder (3) Major depressive disorder, recurrent episode (4) Frontotemporal dementia with behavioral disturbance YONI LAURA MD Sep 07, 2017 20:59
[2017-09-08] MEDS: LEVOTHYROXINE 175 MCG TABLET PO SCH (05:16)
[2017-09-08 06:07] VITALS: BP 109/71
[2017-09-08] MEDS: CALCIUM CARB/VIT D3 500/200 TABLET PO SCH ×2 (07:39→17:51)
[2017-09-08] MEDS: SERTRALINE 50 MG TABLET. PO SCH (07:39)
[2017-09-08] MEDS: DIVALPROEX ER 250 MG TAB.ER.24H. PO SCH ×2 (07:39→20:14)
[2017-09-08] MEDS: SENNOSIDES 8.6 MG TABLET PO SCH (07:39)
[2017-09-08] MEDS: MAGNESIUM OXIDE 400 MG TABLET PO SCH (07:39)
[2017-09-08] MEDS: DOCUSATE SODIUM 100 MG CAPSULE PO SCH ×2 (07:39→20:14)
[2017-09-08] MEDS: FENOFIBRATE NANOCRYSTALLIZED 48 MG TABLET PO SCH (07:39)
[2017-09-08] MEDS: UBIDECARENONE 50 MG CAPSULE. PO SCH (07:40)
[2017-09-08] MEDS: KETOCONAZOLE 2% SHAMPOO 120ML BOTTLE. TP SCH (07:40)
[2017-09-08] MEDS: DONEPEZIL HCL 5 MG TABLET. PO SCH (07:40)
[2017-09-08] MEDS: RIVAROXABAN 15 MG TABLET. PO SCH (07:40)
[2017-09-08] MEDS ORDERED: HYDROCORTISONE 1% TOPICAL CREAM 30GM TUBE. TP PRN (07:45)
[2017-09-08] MEDS: PANTOPRAZOLE 40 MG TABLET. PO SCH (07:49)
[2017-09-08] MEDS: MULTIVITAMIN with MINERAL TABLET. PO SCH (07:49)
[2017-09-08] MEDS: MEMANTINE 10 MG TABLET. PO SCH ×2 (07:49→20:14)
[2017-09-08 16:06] VITALS: BP 144/68
[2017-09-08] MEDS: DIVALPROEX ER 500 MG TAB.ER.24H PO SCH (20:14)
[2017-09-08] MEDS: MELATONIN 3 MG TABLET PO SCH (20:14)
[2017-09-08] MEDS: QUEtiapine 50 MG TABLET. PO SCH (20:14)
[2017-09-08] MEDS: traZODone 50 MG TABLET. PO SCH (20:14)
[2017-09-08] MEDS: ACETAMINOPHEN 325 MG TABLET PO PRN (20:18)
--- NOTE | 2017-09-08 20:51 | PDOC ---
Exam Note: Jean Marie Note: Please also refer to the separate dictated note~for this date of service dictated separately.~Patient seen individually. Discussed the patient with Nursing staff reviewed the chart.~Reviewed interim history and current functioning. Reviewed vital signs,~Labs/ Radiology~and current medications noted below. Continue current treatment with the changes noted in the dictated addendum note Assessment: Vital Signs: Vital Signs Date Time Temp Pulse Resp B/P (MAP) Pulse Ox O2 Delivery O2 Flow Rate FiO2 09/08/17 16:06 97.7 78 16 144/68 (93) 96 09/05/17 17:17 Room Air I&O Intake and Output 09/08/17 07:00 Intake Total 1560 ml Balance 1560 ml Intake Oral 1560 ml # Voids 1 Current Medications: Meds: Current Medications Acetaminophen (Tylenol) 650 mg PRN Q6HRS PRN PO PAIN / TEMP Last administered on 09/08/17 20:18; Start 09/05/17 at 19:00 Multi-Ingredient Ointment (Analgesic [place]) 1 corina PRN QID PRN TP MUSCLE PAIN; Start 09/05/17 at 19:00 Al Hydroxide/Mg Hydroxide (Mylanta Plus Xs) 15 ml PRN AFTMEALHC PRN PO DYSPEPSIA; Start 09/05/17 at 19:00 Magnesium Hydroxide (Milk Of Magnesia) 2,400 mg PRN QHS PRN PO CONSTIPATION; Start 09/05/17 at 19:00 Citalopram Hydrobromide (CeleXA) 20 mg DAILY PO Last administered on 09/06/17at 08:12; Start 09/06/17 at 09:00; Stop 09/06/17 at 16:29; Status DC Donepezil HCl (Aricept) 5 mg DAILY PO Last administered on 09/08/17at 07:40; Start 09/06/17 at 09:00; Stop 09/09/17 at 08:59 Divalproex Sodium (Depakote Er) 500 mg DAILY PO Last administered on 09/08/17at 07:39; Start 09/06/17 at 09:00 Divalproex Sodium (Depakote Er) 500 mg QHS PO Last administered on 09/08/17at 20: 14; Start 09/05/17 at 21:00 Melatonin 3 mg QHS PO Last administered on 09/08/17 20:14; Start 09/05/17 at 21 :00 Memantine (Namenda) 10 mg BID PO Last administered on 09/08/17 20:14; Start at 21:00 Quetiapine Fumarate (SEROquel) 50 mg QHS PO Last administered on 09/06/17 19:43 ; Start 09/05/17 at 21:00; Stop 09/07/17 at 11:43; Status DC Trazodone HCl (Desyrel) 50 mg QHS PO Last administered on 09/08/17 20:14; Start 09/05/17 at 21:00 Divalproex Sodium (Depakote Er) 250 mg QHS PO Last administered on 09/08/17 20: 14; Start 09/05/17 at 21:00 Diclofenac Sodium (Voltaren) 4 corina PRN TID PRN TP PAIN Last administered on 09/07 07:47; Start 09/05/17 at 20:00 Ketoconazole (Nizoral 2% Shampoo) 1 corina DAILY TP Last administered on 09/07/17 07:53; Start 09/06/17 at 09:00 Levothyroxine Sodium (Synthroid) 175 mcg DAILY07 PO Last administered on 05:16; Start 09/06/17 at 07:00; Stop 09/08/17 at 06:56; Status DC Rivaroxaban (Xarelto) 15 mg DAILY PO Last administered on 09/08/17 07:40; Start 09/06/17 at 09:00 Calcium/Vitamin D (Oscal D 500mg/ 200uts) 1 tab BIDWMEALS PO Last administered on 09/08/17 17:51; Start 09/06/17 at 08:00 Docusate Sodium (Colace) 100 mg BID PO Last administered on 09/08/17 20:14; Start 09/05/17 at 21:00 Fenofibrate (Tricor) 48 mg DAILY PO Last administered on 09/08/17at 07:39; Start 09/06/17 at 09:00 Hydrocortisone (Cortaid) 1 corina BID TP Last administered on 09/07/17 20:33; Start 09/05/17 at 21:00; Stop 09/08/17 at 07:45; Status DC Magnesium Oxide (Magnesium Oxide) 400 mg DAILY PO Last administered on 07:39; Start 09/06/17 at 09:00 Multivitamins/ Calcium (Thera-M Plus) 1 tab DAILY PO Last administered on at 07:49; Start 09/06/17 at 09:00 Pantoprazole Sodium (Protonix) 40 mg DAILYAC PO Last administered on 09/08/17 07:49; Start 09/06/17 at 07:30 Sennosides (Senna) 8.6 mg DAILY PO Last administered on 09/08/17 07:39; Start 09/06/17 at 09:00 Coenzyme Q10 (Coenzyme Q10) 100 mg DAILY PO Last administered on 09/08/17at 07:40 ; Start 09/06/17 at 09:00 Sertraline HCl (Zoloft) 50 mg DAILY PO Last administered on 09/08/17at 07:39; Start 09/07/17 at 09:00 Quetiapine Fumarate (SEROquel) 75 mg QHS PO Last administered on 09/08/17at 20:14 ; Start 09/07/17 at 21:00 Levothyroxine Sodium (Synthroid) 175 mcg DAILY07 PO ; Start 09/09/17 at 07:00 Hydrocortisone (Cortaid) 1 corina PRN BID PRN TP RASH; Start 09/08/17 at 07:45 Active Scripts Active Reported Divalproex Sodium 250 Mg Tablet.dr 250 Mg PO QHS Vitamin B-12 (Cyanocobalamin (Vitamin B-12)) 1,000 Mcg Tablet 1,000 Mcg PO Ketoconazole 120 Ml Shampoo 1 [place] TP DAILY Voltaren (Diclofenac Sodium) 100 Gm Gel..gram. 4 Gm TP PRN TID PRN Multivitamins (Multivitamin) 1 Each Tablet 1 Tab PO DAILY Trazodone Hcl 50 Mg Tablet 50 Mg PO QHS Senna (Sennosides) 8.6 Mg Tablet 8.6 Mg PO DAILY Xarelto (Rivaroxaban) 10 Mg Tablet 15 Mg PO DAILY Seroquel (Quetiapine Fumarate) 50 Mg Tablet 50 Mg PO QHS Omeprazole 20 Mg Tablet.dr 20 Mg PO DAILY Namenda (Memantine Hcl) 10 Mg Tablet 10 Mg PO BID Melatonin 3 Mg Tablet 3 Mg PO DAILY Magnesium Oxide 400 Mg Tablet 400 Mg PO DAILY Levothyroxine Sodium 175 Mcg Tablet 175 Mcg PO DAILY07 Cortizone-10 1% Creme (Hydrocortisone/Aloe Vera) 28 Gm Cream..g. 1 [place] TP BID Tricor (Fenofibrate Nanocrystallized) 48 Mg Tablet 48 Mg PO DAILY Donepezil Hcl 5 Mg Tablet 5 Mg PO DAILY 5 Days Docusate Sodium 100 Mg Capsule 100 Mg PO BID Depakote (Divalproex Sodium) 500 Mg Tablet.dr 500 Mg PO BID Coenzyme Q10 (Ubidecarenone) 100 Mg Capsule 100 Mg PO DAILY Citalopram Hbr (Citalopram Hydrobromide) 20 Mg Tablet 20 Mg PO DAILY Calcium + Vitamin D Tablet (Calcium Carbonate/Vitamin D3) 1 Each Tablet 1 Tab PO BID I have reviewed the current psychotropics carefully including drug interactions. Risk benefit ratio favors no change other than as noted in my dictated progress note. Diagnosis: Problems: (1) Anxiety disorder (2) Major neurocognitive disorder (3) Major depressive disorder, recurrent episode (4) Frontotemporal dementia with behavioral disturbance YONI LAURA MD Sep 08, 2017 20:51
--- NOTE | 2017-09-09 00:44 | PN ---
DATE: 09/05/2017 This is a late entry 09/06/2017 covers elements not covered in my initial note. SUBJECTIVE: I met with the patient in his room. Per nursing report, he has been manipulative, anxious, somewhat paranoid, irritable, and impulsive. Daughter visited and is wanting our recommendations on appropriate placement. Valproic acid level is 63. He remains somewhat obsessive. REVIEW OF SYSTEMS: No CV, , pulmonary, eye system symptoms on review. MENTAL STATUS EXAM: Oriented to himself and situation. Speech is coherent, abstraction fair, computation impaired, language function intact. Attention span short. Social skills are poor. LABORATORY DATA: Reviewed. IMPRESSION: Frontotemporal dementia, major neurocognitive disorder, early frontotemporal with depression; anxiety disorder, unspecified; probable bipolar 1 disorder, depressed with psychotic features; major depressive disorder, recurrent. PLAN: Change Celexa to Zoloft 50 mg a day. Continue Depakote. Rest unchanged for now. MAN Lani LAURA MD DR: JAMES/nohelia JOB#: [id number] / [id number] PROGRESS NOTE
--- NOTE | 2017-09-09 01:37 | PN ---
DATE: 09/07/2017 PSYCHIATRIC PROGRESS NOTE This is a late entry, 09/07, covers elements not covered in my initial note. SUBJECTIVE: I met with the patient in the evening, staffed at Treatment Team meeting with the entire team in the morning and the patient attended this conference and his daughter, Marta, was on the conference call listening in. The patient remains somewhat anxious, labile, paranoid, and we addressed this. Has short-term memory deficits. REVIEW OF SYSTEMS: No CV, , pulmonary, eye, ENT system symptoms on review. Reliability varies. MENTAL STATUS EXAM: Oriented to himself and situation. Speech coherent, somewhat pressured at times. Abstraction fair, computation impaired, language function intact. Mood and affect somewhat labile at times. LABORATORY DATA: Reviewed. IMPRESSION: Major neurocognitive disorder, early frontotemporal with delusion, depression, behavioral disturbance. Rest unchanged. Valproic acid level is 63, therapeutic, on 09/06. Increase Seroquel to 75 mg at bedtime, change Celexa 20 mg a day to Zoloft 50 mg a day. Continue Depakote, Aricept, melatonin, Namenda, trazadone. MAN Lani LAURA MD DR: JAMES/nohelia JOB#: [id number] / [id number]
[2017-09-09] MEDS: DICLOFENAC SODIUM 1% TOPICAL GEL 100GM TUBE. TP PRN ×2 (05:59→21:48)
[2017-09-09] MEDS: LEVOTHYROXINE 175 MCG TABLET PO SCH (05:59)
[2017-09-09 06:14] VITALS: BP 103/66
[2017-09-09] MEDS: UBIDECARENONE 50 MG CAPSULE. PO SCH (07:59)
[2017-09-09] MEDS: SENNOSIDES 8.6 MG TABLET PO SCH (07:59)
[2017-09-09] MEDS: MAGNESIUM OXIDE 400 MG TABLET PO SCH (07:59)
[2017-09-09] MEDS: FENOFIBRATE NANOCRYSTALLIZED 48 MG TABLET PO SCH (07:59)
[2017-09-09] MEDS: PANTOPRAZOLE 40 MG TABLET. PO SCH (07:59)
[2017-09-09] MEDS: SERTRALINE 50 MG TABLET. PO SCH (07:59)
[2017-09-09] MEDS: CALCIUM CARB/VIT D3 500/200 TABLET PO SCH ×2 (08:00→17:31)
[2017-09-09] MEDS: RIVAROXABAN 15 MG TABLET. PO SCH (08:00)
[2017-09-09] MEDS: DIVALPROEX ER 250 MG TAB.ER.24H. PO SCH ×2 (08:00→20:33)
[2017-09-09] MEDS: MULTIVITAMIN with MINERAL TABLET. PO SCH (08:00)
[2017-09-09] MEDS: DOCUSATE SODIUM 100 MG CAPSULE PO SCH ×2 (08:00→20:33)
[2017-09-09] MEDS: MEMANTINE 10 MG TABLET. PO SCH ×2 (08:00→20:34)
[2017-09-09] MEDS: KETOCONAZOLE 2% SHAMPOO 120ML BOTTLE. TP SCH (08:01)
[2017-09-09 16:22] VITALS: BP 142/81
[2017-09-09] MEDS: MELATONIN 3 MG TABLET PO SCH (20:33)
[2017-09-09] MEDS: DIVALPROEX ER 500 MG TAB.ER.24H PO SCH (20:33)
[2017-09-09] MEDS: QUEtiapine 50 MG TABLET. PO SCH (20:34)
[2017-09-09] MEDS: traZODone 50 MG TABLET. PO SCH (20:34)
[2017-09-10 06:05] VITALS: BP 114/75
[2017-09-10] MEDS: LEVOTHYROXINE 175 MCG TABLET PO SCH (06:25)
[2017-09-10] MEDS: DICLOFENAC SODIUM 1% TOPICAL GEL 100GM TUBE. TP PRN (06:26)
[2017-09-10] MEDS: CALCIUM CARB/VIT D3 500/200 TABLET PO SCH ×2 (08:23→18:17)
[2017-09-10] MEDS: RIVAROXABAN 15 MG TABLET. PO SCH (08:24)
[2017-09-10] MEDS: MEMANTINE 10 MG TABLET. PO SCH ×2 (08:24→21:37)
[2017-09-10] MEDS: SENNOSIDES 8.6 MG TABLET PO SCH (08:24)
[2017-09-10] MEDS: DOCUSATE SODIUM 100 MG CAPSULE PO SCH ×2 (08:25→21:37)
[2017-09-10] MEDS: UBIDECARENONE 50 MG CAPSULE. PO SCH (08:25)
[2017-09-10] MEDS: PANTOPRAZOLE 40 MG TABLET. PO SCH (08:25)
[2017-09-10] MEDS: SERTRALINE 50 MG TABLET. PO SCH (08:25)
[2017-09-10] MEDS: FENOFIBRATE NANOCRYSTALLIZED 48 MG TABLET PO SCH (08:25)
[2017-09-10] MEDS: MULTIVITAMIN with MINERAL TABLET. PO SCH (08:25)
[2017-09-10] MEDS: MAGNESIUM OXIDE 400 MG TABLET PO SCH (08:25)
[2017-09-10] MEDS: DIVALPROEX ER 250 MG TAB.ER.24H. PO SCH ×2 (08:25→21:36)
[2017-09-10] MEDS: KETOCONAZOLE 2% SHAMPOO 120ML BOTTLE. TP SCH (08:27)
[2017-09-10 16:38] VITALS: BP 111/72
--- NOTE | 2017-09-10 20:15 | PDOC ---
Exam Note: Jean Marie Note: Late entry for date of service September. Please also refer to the separate dictated note~for this date of service dictated separately.~Patient seen individually. Discussed the patient with Nursing staff reviewed the chart.~ Reviewed interim history and current functioning. Reviewed vital signs,~Labs/ Radiology~and current medications noted below. Continue current treatment with the changes noted in the dictated addendum note Assessment: Vital Signs: VS - Last 72 Hours, by Label Date Time Temp Pulse Resp B/P (MAP) Pulse Ox O2 Delivery O2 Flow Rate FiO2 09/10/17 16:38 98.3 72 20 111/72 (85) 95 Room Air 09/10/17 06:05 97.7 70 16 114/75 (88) 97 09/09/17 16:22 98.3 75 18 142/81 (101) 97 09/09/17 06:14 97.7 69 14 103/66 (78) 96 Room Air 09/08/17 16:06 97.7 78 16 144/68 (93) 96 09/08/17 06:07 97.3 73 17 109/71 (84) 100 Vital Signs Date Time Temp Pulse Resp B/P (MAP) Pulse Ox O2 Delivery O2 Flow Rate FiO2 09/10/17 16:38 98.3 72 20 111/72 (85) 95 Room Air I&O Intake and Output 09/10/17 07:00 Intake Total 1680 ml Balance 1680 ml Intake Oral 1680 ml # Voids 1 Current Medications: Meds: Current Medications Acetaminophen (Tylenol) 650 mg PRN Q6HRS PRN PO PAIN / TEMP Last administered on 09/08/17at 20:18; Start 09/05/17 at 19:00 Multi-Ingredient Ointment (Analgesic [place]) 1 corina PRN QID PRN TP MUSCLE PAIN; Start 09/05/17 at 19:00 Al Hydroxide/Mg Hydroxide (Mylanta Plus Xs) 15 ml PRN AFTMEALHC PRN PO DYSPEPSIA; Start 09/05/17 at 19:00 Magnesium Hydroxide (Milk Of Magnesia) 2,400 mg PRN QHS PRN PO CONSTIPATION; Start 09/05/17 at 19:00 Citalopram Hydrobromide (CeleXA) 20 mg DAILY PO Last administered on 09/06/17at 08:12; Start 09/06/17 at 09:00; Stop 09/06/17 at 16:29; Status DC Donepezil HCl (Aricept) 5 mg DAILY PO Last administered on 09/08/17 07:40; Start 09/06/17 at 09:00; Stop 09/09/17 at 08:59; Status DC Divalproex Sodium (Depakote Er) 500 mg DAILY PO Last administered on 09/10/17 08:25; Start 09/06/17 at 09:00 Divalproex Sodium (Depakote Er) 500 mg QHS PO Last administered on 09/09/17 20: 33; Start 09/05/17 at 21:00 Melatonin 3 mg QHS PO Last administered on 09/09/17 20:33; Start 09/05/17 at 21 :00 Memantine (Namenda) 10 mg BID PO Last administered on 09/10/17 08:24; Start at 21:00 Quetiapine Fumarate (SEROquel) 50 mg QHS PO Last administered on 09/06/17at 19:43 ; Start 09/05/17 at 21:00; Stop 09/07/17 at 11:43; Status DC Trazodone HCl (Desyrel) 50 mg QHS PO Last administered on 09/09/17 20:34; Start 09/05/17 at 21:00 Divalproex Sodium (Depakote Er) 250 mg QHS PO Last administered on 09/09/17 20: 33; Start 09/05/17 at 21:00 Diclofenac Sodium (Voltaren) 4 corina PRN TID PRN TP PAIN Last administered on 09/10 06:26; Start 09/05/17 at 20:00 Ketoconazole (Nizoral 2% Shampoo) 1 corina DAILY TP Last administered on 09/10/17 08:27; Start 09/06/17 at 09:00 Levothyroxine Sodium (Synthroid) 175 mcg DAILY07 PO Last administered on 05:16; Start 09/06/17 at 07:00; Stop 09/08/17 at 06:56; Status DC Rivaroxaban (Xarelto) 15 mg DAILY PO Last administered on 09/10/17 08:24; Start 09/06/17 at 09:00 Calcium/Vitamin D (Oscal D 500mg/ 200uts) 1 tab BIDWMEALS PO Last administered on 09/10/17 18:17; Start 09/06/17 at 08:00 Docusate Sodium (Colace) 100 mg BID PO Last administered on 09/10/17 08:25; Start 09/05/17 at 21:00 Fenofibrate (Tricor) 48 mg DAILY PO Last administered on 09/10/17 08:25; Start 09/06/17 at 09:00 Hydrocortisone (Cortaid) 1 corina BID TP Last administered on 09/07/17 20:33; Start 09/05/17 at 21:00; Stop 09/08/17 at 07:45; Status DC Magnesium Oxide (Magnesium Oxide) 400 mg DAILY PO Last administered on 08:25; Start 09/06/17 at 09:00 Multivitamins/ Calcium (Thera-M Plus) 1 tab DAILY PO Last administered on 08:25; Start 09/06/17 at 09:00 Pantoprazole Sodium (Protonix) 40 mg DAILYAC PO Last administered on 09/10/17 08:25; Start 09/06/17 at 07:30 Sennosides (Senna) 8.6 mg DAILY PO Last administered on 09/10/17 08:24; Start 09/06/17 at 09:00 Coenzyme Q10 (Coenzyme Q10) 100 mg DAILY PO Last administered on 09/10/17 08:25 ; Start 09/06/17 at 09:00 Sertraline HCl (Zoloft) 50 mg DAILY PO Last administered on 09/10/17 08:25; Start 09/07/17 at 09:00 Quetiapine Fumarate (SEROquel) 75 mg QHS PO Last administered on 09/09/17 20:34 ; Start 09/07/17 at 21:00 Levothyroxine Sodium (Synthroid) 175 mcg DAILY07 PO Last administered on 06:25; Start 09/09/17 at 07:00 Hydrocortisone (Cortaid) 1 corina PRN BID PRN TP RASH; Start 09/08/17 at 07:45 Active Scripts Active Reported Divalproex Sodium 250 Mg Tablet.dr 250 Mg PO QHS Vitamin B-12 (Cyanocobalamin (Vitamin B-12)) 1,000 Mcg Tablet 1,000 Mcg PO Ketoconazole 120 Ml Shampoo 1 [place] TP DAILY Voltaren (Diclofenac Sodium) 100 Gm Gel..gram. 4 Gm TP PRN TID PRN Multivitamins (Multivitamin) 1 Each Tablet 1 Tab PO DAILY Trazodone Hcl 50 Mg Tablet 50 Mg PO QHS Senna (Sennosides) 8.6 Mg Tablet 8.6 Mg PO DAILY Xarelto (Rivaroxaban) 10 Mg Tablet 15 Mg PO DAILY Seroquel (Quetiapine Fumarate) 50 Mg Tablet 50 Mg PO QHS Omeprazole 20 Mg Tablet.dr 20 Mg PO DAILY Namenda (Memantine Hcl) 10 Mg Tablet 10 Mg PO BID Melatonin 3 Mg Tablet 3 Mg PO DAILY Magnesium Oxide 400 Mg Tablet 400 Mg PO DAILY Levothyroxine Sodium 175 Mcg Tablet 175 Mcg PO DAILY07 Cortizone-10 1% Creme (Hydrocortisone/Aloe Vera) 28 Gm Cream..g. 1 [place] TP BID Tricor (Fenofibrate Nanocrystallized) 48 Mg Tablet 48 Mg PO DAILY Donepezil Hcl 5 Mg Tablet 5 Mg PO DAILY 5 Days Docusate Sodium 100 Mg Capsule 100 Mg PO BID Depakote (Divalproex Sodium) 500 Mg Tablet.dr 500 Mg PO BID Coenzyme Q10 (Ubidecarenone) 100 Mg Capsule 100 Mg PO DAILY Citalopram Hbr (Citalopram Hydrobromide) 20 Mg Tablet 20 Mg PO DAILY Calcium + Vitamin D Tablet (Calcium Carbonate/Vitamin D3) 1 Each Tablet 1 Tab PO BID I have reviewed the current psychotropics carefully including drug interactions. Risk benefit ratio favors no change other than as noted in my dictated progress note. Diagnosis: Problems: (1) Anxiety disorder (2) Major neurocognitive disorder (3) Major depressive disorder, recurrent episode (4) Frontotemporal dementia with behavioral disturbance YONI LAURA MD Sep 10, 2017 20:15
--- NOTE | 2017-09-10 20:16 | PDOC ---
Exam Note: Jean Marie Note: Please also refer to the separate dictated note~for this date of service dictated separately.~Patient seen individually. Discussed the patient with Nursing staff reviewed the chart.~Reviewed interim history and current functioning. Reviewed vital signs,~Labs/ Radiology~and current medications noted below. Continue current treatment with the changes noted in the dictated addendum note Assessment: Vital Signs: Vital Signs Date Time Temp Pulse Resp B/P (MAP) Pulse Ox O2 Delivery O2 Flow Rate FiO2 09/10/17 16:38 98.3 72 20 111/72 (85) 95 Room Air I&O Intake and Output 09/10/17 07:00 Intake Total 1680 ml Balance 1680 ml Intake Oral 1680 ml # Voids 1 Current Medications: Meds: Current Medications Acetaminophen (Tylenol) 650 mg PRN Q6HRS PRN PO PAIN / TEMP Last administered on 09/08/17 20:18; Start 09/05/17 at 19:00 Multi-Ingredient Ointment (Analgesic [place]) 1 corina PRN QID PRN TP MUSCLE PAIN; Start 09/05/17 at 19:00 Al Hydroxide/Mg Hydroxide (Mylanta Plus Xs) 15 ml PRN AFTMEALHC PRN PO DYSPEPSIA; Start 09/05/17 at 19:00 Magnesium Hydroxide (Milk Of Magnesia) 2,400 mg PRN QHS PRN PO CONSTIPATION; Start 09/05/17 at 19:00 Citalopram Hydrobromide (CeleXA) 20 mg DAILY PO Last administered on 09/06/17at 08:12; Start 09/06/17 at 09:00; Stop 09/06/17 at 16:29; Status DC Donepezil HCl (Aricept) 5 mg DAILY PO Last administered on 09/08/17at 07:40; Start 09/06/17 at 09:00; Stop 09/09/17 at 08:59; Status DC Divalproex Sodium (Depakote Er) 500 mg DAILY PO Last administered on 09/10/17 08:25; Start 09/06/17 at 09:00 Divalproex Sodium (Depakote Er) 500 mg QHS PO Last administered on 09/09/17 20: 33; Start 09/05/17 at 21:00 Melatonin 3 mg QHS PO Last administered on 09/09/17 20:33; Start 09/05/17 at 21 :00 Memantine (Namenda) 10 mg BID PO Last administered on 09/10/17 08:24; Start at 21:00 Quetiapine Fumarate (SEROquel) 50 mg QHS PO Last administered on 09/06/17 19:43 ; Start 09/05/17 at 21:00; Stop 09/07/17 at 11:43; Status DC Trazodone HCl (Desyrel) 50 mg QHS PO Last administered on 09/09/17 20:34; Start 09/05/17 at 21:00 Divalproex Sodium (Depakote Er) 250 mg QHS PO Last administered on 09/09/17 20: 33; Start 09/05/17 at 21:00 Diclofenac Sodium (Voltaren) 4 corina PRN TID PRN TP PAIN Last administered on 09/10 06:26; Start 09/05/17 at 20:00 Ketoconazole (Nizoral 2% Shampoo) 1 corina DAILY TP Last administered on 09/10/17 08:27; Start 09/06/17 at 09:00 Levothyroxine Sodium (Synthroid) 175 mcg DAILY07 PO Last administered on 05:16; Start 09/06/17 at 07:00; Stop 09/08/17 at 06:56; Status DC Rivaroxaban (Xarelto) 15 mg DAILY PO Last administered on 09/10/17 08:24; Start 09/06/17 at 09:00 Calcium/Vitamin D (Oscal D 500mg/ 200uts) 1 tab BIDWMEALS PO Last administered on 09/10/17 18:17; Start 09/06/17 at 08:00 Docusate Sodium (Colace) 100 mg BID PO Last administered on 09/10/17 08:25; Start 09/05/17 at 21:00 Fenofibrate (Tricor) 48 mg DAILY PO Last administered on 09/10/17 08:25; Start 09/06/17 at 09:00 Hydrocortisone (Cortaid) 1 corina BID TP Last administered on 09/07/17 20:33; Start 09/05/17 at 21:00; Stop 09/08/17 at 07:45; Status DC Magnesium Oxide (Magnesium Oxide) 400 mg DAILY PO Last administered on 08:25; Start 09/06/17 at 09:00 Multivitamins/ Calcium (Thera-M Plus) 1 tab DAILY PO Last administered on 08:25; Start 09/06/17 at 09:00 Pantoprazole Sodium (Protonix) 40 mg DAILYAC PO Last administered on 09/10/17 08:25; Start 09/06/17 at 07:30 Sennosides (Senna) 8.6 mg DAILY PO Last administered on 09/10/17 08:24; Start 09/06/17 at 09:00 Coenzyme Q10 (Coenzyme Q10) 100 mg DAILY PO Last administered on 09/10/17 08:25 ; Start 09/06/17 at 09:00 Sertraline HCl (Zoloft) 50 mg DAILY PO Last administered on 09/10/17 08:25; Start 09/07/17 at 09:00 Quetiapine Fumarate (SEROquel) 75 mg QHS PO Last administered on 09/09/17at 20:34 ; Start 09/07/17 at 21:00 Levothyroxine Sodium (Synthroid) 175 mcg DAILY07 PO Last administered on 06:25; Start 09/09/17 at 07:00 Hydrocortisone (Cortaid) 1 corina PRN BID PRN TP RASH; Start 09/08/17 at 07:45 Active Scripts Active Reported Divalproex Sodium 250 Mg Tablet.dr 250 Mg PO QHS Vitamin B-12 (Cyanocobalamin (Vitamin B-12)) 1,000 Mcg Tablet 1,000 Mcg PO Ketoconazole 120 Ml Shampoo 1 Corina TP DAILY Voltaren (Diclofenac Sodium) 100 Gm Gel..gram. 4 Gm TP PRN TID PRN Multivitamins (Multivitamin) 1 Each Tablet 1 Tab PO DAILY Trazodone Hcl 50 Mg Tablet 50 Mg PO QHS Senna (Sennosides) 8.6 Mg Tablet 8.6 Mg PO DAILY Xarelto (Rivaroxaban) 10 Mg Tablet 15 Mg PO DAILY Seroquel (Quetiapine Fumarate) 50 Mg Tablet 50 Mg PO QHS Omeprazole 20 Mg Tablet.dr 20 Mg PO DAILY Namenda (Memantine Hcl) 10 Mg Tablet 10 Mg PO BID Melatonin 3 Mg Tablet 3 Mg PO DAILY Magnesium Oxide 400 Mg Tablet 400 Mg PO DAILY Levothyroxine Sodium 175 Mcg Tablet 175 Mcg PO DAILY07 Cortizone-10 1% Creme (Hydrocortisone/Aloe Vera) 28 Gm Cream..g. 1 [place] TP BID Tricor (Fenofibrate Nanocrystallized) 48 Mg Tablet 48 Mg PO DAILY Donepezil Hcl 5 Mg Tablet 5 Mg PO DAILY 5 Days Docusate Sodium 100 Mg Capsule 100 Mg PO BID Depakote (Divalproex Sodium) 500 Mg Tablet.dr 500 Mg PO BID Coenzyme Q10 (Ubidecarenone) 100 Mg Capsule 100 Mg PO DAILY Citalopram Hbr (Citalopram Hydrobromide) 20 Mg Tablet 20 Mg PO DAILY Calcium + Vitamin D Tablet (Calcium Carbonate/Vitamin D3) 1 Each Tablet 1 Tab PO BID I have reviewed the current psychotropics carefully including drug interactions. Risk benefit ratio favors no change other than as noted in my dictated progress note. Diagnosis: Problems: (1) Anxiety disorder (2) Major neurocognitive disorder (3) Major depressive disorder, recurrent episode (4) Frontotemporal dementia with behavioral disturbance YONI LAURA MD Sep 10, 2017 20:16
[2017-09-10] MEDS: QUEtiapine 50 MG TABLET. PO SCH (21:36)
[2017-09-10] MEDS: traZODone 50 MG TABLET. PO SCH (21:37)
[2017-09-10] MEDS: MELATONIN 3 MG TABLET PO SCH (21:37)
[2017-09-10] MEDS: DIVALPROEX ER 500 MG TAB.ER.24H PO SCH (21:37)
--- NOTE | 2017-09-10 23:36 | PN ---
DATE: 09/08/2017 This late entry, 09/08/2017, covers elements not covered in my initial note. SUBJECTIVE: I met with the patient in the evening. The patient slept 7 hours previous evening, remains somewhat socially inappropriate at times condescending. We have requested psychological testing with Dr. Torrez. REVIEW OF SYSTEMS: No CV, , pulmonary, eye, ENT system symptoms on review. MENTAL STATUS EXAM: Oriented to himself and situation. Speech coherent, has some latency. Abstraction fair, computation impaired, language function intact. Mood and affect somewhat anxious, labile. LABORATORY DATA: Reviewed. IMPRESSION: Unchanged from initial note. PLAN: No change from initial note. MAN Lani LAURA MD DR: JAMES/nohelia JOB#: [id number] / [id number]
[2017-09-11] MEDS: LEVOTHYROXINE 175 MCG TABLET PO SCH (05:09)
[2017-09-11 06:42] VITALS: BP 122/65
[2017-09-11] MEDS: MEMANTINE 10 MG TABLET. PO SCH ×2 (08:22→20:51)
[2017-09-11] MEDS: RIVAROXABAN 15 MG TABLET. PO SCH (08:22)
[2017-09-11] MEDS: SENNOSIDES 8.6 MG TABLET PO SCH (08:22)
[2017-09-11] MEDS: UBIDECARENONE 50 MG CAPSULE. PO SCH (08:22)
[2017-09-11] MEDS: PANTOPRAZOLE 40 MG TABLET. PO SCH (08:22)
[2017-09-11] MEDS: CALCIUM CARB/VIT D3 500/200 TABLET PO SCH ×2 (08:22→17:18)
[2017-09-11] MEDS: MAGNESIUM OXIDE 400 MG TABLET PO SCH (08:23)
[2017-09-11] MEDS: SERTRALINE 50 MG TABLET. PO SCH (08:23)
[2017-09-11] MEDS: DOCUSATE SODIUM 100 MG CAPSULE PO SCH ×2 (08:23→20:51)
[2017-09-11] MEDS: DIVALPROEX ER 250 MG TAB.ER.24H. PO SCH ×2 (08:23→20:50)
[2017-09-11] MEDS: MULTIVITAMIN with MINERAL TABLET. PO SCH (08:23)
[2017-09-11] MEDS: FENOFIBRATE NANOCRYSTALLIZED 48 MG TABLET PO SCH (08:23)
[2017-09-11] MEDS: KETOCONAZOLE 2% SHAMPOO 120ML BOTTLE. TP SCH (09:00)
[2017-09-11] MEDS: DICLOFENAC SODIUM 1% TOPICAL GEL 100GM TUBE. TP PRN (10:08)
[2017-09-11 16:21] VITALS: BP 110/69
[2017-09-11] MEDS: QUEtiapine 50 MG TABLET. PO SCH (20:49)
[2017-09-11] MEDS: MELATONIN 3 MG TABLET PO SCH (20:49)
[2017-09-11] MEDS: DIVALPROEX ER 500 MG TAB.ER.24H PO SCH (20:50)
[2017-09-11] MEDS: traZODone 50 MG TABLET. PO SCH (20:51)
--- NOTE | 2017-09-11 21:15 | PDOC ---
Exam Note: Jean Marie Note: Please also refer to the separate dictated note~for this date of service dictated separately.~Patient seen individually. Discussed the patient with Nursing staff reviewed the chart.~Reviewed interim history and current functioning. Reviewed vital signs,~Labs/ Radiology~and current medications noted below. Continue current treatment with the changes noted in the dictated addendum note Assessment: Vital Signs: Vital Signs Date Time Temp Pulse Resp B/P (MAP) Pulse Ox O2 Delivery O2 Flow Rate FiO2 09/11/17 16:21 98.3 68 16 110/69 (83) 94 09/11/17 06:42 Room Air I&O Intake and Output 09/11/17 07:00 Intake Total 1320 ml Balance 1320 ml Intake Oral 1320 ml Current Medications: Meds: Current Medications Acetaminophen (Tylenol) 650 mg PRN Q6HRS PRN PO PAIN / TEMP Last administered on 09/08/17at 20:18; Start 09/05/17 at 19:00 Multi-Ingredient Ointment (Analgesic [place]) 1 corina PRN QID PRN TP MUSCLE PAIN; Start 09/05/17 at 19:00 Al Hydroxide/Mg Hydroxide (Mylanta Plus Xs) 15 ml PRN AFTMEALHC PRN PO DYSPEPSIA; Start 09/05/17 at 19:00 Magnesium Hydroxide (Milk Of Magnesia) 2,400 mg PRN QHS PRN PO CONSTIPATION; Start 09/05/17 at 19:00 Citalopram Hydrobromide (CeleXA) 20 mg DAILY PO Last administered on 09/06/17at 08:12; Start 09/06/17 at 09:00; Stop 09/06/17 at 16:29; Status DC Donepezil HCl (Aricept) 5 mg DAILY PO Last administered on 09/08/17at 07:40; Start 09/06/17 at 09:00; Stop 09/09/17 at 08:59; Status DC Divalproex Sodium (Depakote Er) 500 mg DAILY PO Last administered on 09/11/17at 08:23; Start 09/06/17 at 09:00 Divalproex Sodium (Depakote Er) 500 mg QHS PO Last administered on 09/11/17at 20: 50; Start 09/05/17 at 21:00 Melatonin 3 mg QHS PO Last administered on 09/11/17 20:49; Start 09/05/17 at 21 :00 Memantine (Namenda) 10 mg BID PO Last administered on 09/11/17 20:51; Start at 21:00 Quetiapine Fumarate (SEROquel) 50 mg QHS PO Last administered on 09/06/17 19:43 ; Start 09/05/17 at 21:00; Stop 09/07/17 at 11:43; Status DC Trazodone HCl (Desyrel) 50 mg QHS PO Last administered on 09/11/17 20:51; Start 09/05/17 at 21:00 Divalproex Sodium (Depakote Er) 250 mg QHS PO Last administered on 09/11/17 20: 50; Start 09/05/17 at 21:00 Diclofenac Sodium (Voltaren) 4 corina PRN TID PRN TP PAIN Last administered on 09/11 10:08; Start 09/05/17 at 20:00 Ketoconazole (Nizoral 2% Shampoo) 1 corina DAILY TP Last administered on 09/10/17 08:27; Start 09/06/17 at 09:00 Levothyroxine Sodium (Synthroid) 175 mcg DAILY07 PO Last administered on 05:16; Start 09/06/17 at 07:00; Stop 09/08/17 at 06:56; Status DC Rivaroxaban (Xarelto) 15 mg DAILY PO Last administered on 09/11/17 08:22; Start 09/06/17 at 09:00 Calcium/Vitamin D (Oscal D 500mg/ 200uts) 1 tab BIDWMEALS PO Last administered on 09/11/17 17:18; Start 09/06/17 at 08:00 Docusate Sodium (Colace) 100 mg BID PO Last administered on 09/11/17 20:51; Start 09/05/17 at 21:00 Fenofibrate (Tricor) 48 mg DAILY PO Last administered on 09/11/17 08:23; Start 09/06/17 at 09:00 Hydrocortisone (Cortaid) 1 corina BID TP Last administered on 09/07/17 20:33; Start 09/05/17 at 21:00; Stop 09/08/17 at 07:45; Status DC Magnesium Oxide (Magnesium Oxide) 400 mg DAILY PO Last administered on 08:23; Start 09/06/17 at 09:00 Multivitamins/ Calcium (Thera-M Plus) 1 tab DAILY PO Last administered on 08:23; Start 09/06/17 at 09:00 Pantoprazole Sodium (Protonix) 40 mg DAILYAC PO Last administered on 09/11/17 08:22; Start 09/06/17 at 07:30 Sennosides (Senna) 8.6 mg DAILY PO Last administered on 09/11/17 08:22; Start 09/06/17 at 09:00 Coenzyme Q10 (Coenzyme Q10) 100 mg DAILY PO Last administered on 09/11/17 08:22 ; Start 09/06/17 at 09:00 Sertraline HCl (Zoloft) 50 mg DAILY PO Last administered on 09/11/17 08:23; Start 09/07/17 at 09:00 Quetiapine Fumarate (SEROquel) 75 mg QHS PO Last administered on 09/11/17at 20:49 ; Start 09/07/17 at 21:00 Levothyroxine Sodium (Synthroid) 175 mcg DAILY07 PO Last administered on 05:09; Start 09/09/17 at 07:00 Hydrocortisone (Cortaid) 1 corina PRN BID PRN TP RASH; Start 09/08/17 at 07:45 Active Scripts Active Reported Divalproex Sodium 250 Mg Tablet.dr 250 Mg PO QHS Vitamin B-12 (Cyanocobalamin (Vitamin B-12)) 1,000 Mcg Tablet 1,000 Mcg PO Ketoconazole 120 Ml Shampoo 1 [place] TP DAILY Voltaren (Diclofenac Sodium) 100 Gm Gel..gram. 4 Gm TP PRN TID PRN Multivitamins (Multivitamin) 1 Each Tablet 1 Tab PO DAILY Trazodone Hcl 50 Mg Tablet 50 Mg PO QHS Senna (Sennosides) 8.6 Mg Tablet 8.6 Mg PO DAILY Xarelto (Rivaroxaban) 10 Mg Tablet 15 Mg PO DAILY Seroquel (Quetiapine Fumarate) 50 Mg Tablet 50 Mg PO QHS Omeprazole 20 Mg Tablet.dr 20 Mg PO DAILY Namenda (Memantine Hcl) 10 Mg Tablet 10 Mg PO BID Melatonin 3 Mg Tablet 3 Mg PO DAILY Magnesium Oxide 400 Mg Tablet 400 Mg PO DAILY Levothyroxine Sodium 175 Mcg Tablet 175 Mcg PO DAILY07 Cortizone-10 1% Creme (Hydrocortisone/Aloe Vera) 28 Gm Cream..g. 1 [place] TP BID Tricor (Fenofibrate Nanocrystallized) 48 Mg Tablet 48 Mg PO DAILY Donepezil Hcl 5 Mg Tablet 5 Mg PO DAILY 5 Days Docusate Sodium 100 Mg Capsule 100 Mg PO BID Depakote (Divalproex Sodium) 500 Mg Tablet.dr 500 Mg PO BID Coenzyme Q10 (Ubidecarenone) 100 Mg Capsule 100 Mg PO DAILY Citalopram Hbr (Citalopram Hydrobromide) 20 Mg Tablet 20 Mg PO DAILY Calcium + Vitamin D Tablet (Calcium Carbonate/Vitamin D3) 1 Each Tablet 1 Tab PO BID I have reviewed the current psychotropics carefully including drug interactions. Risk benefit ratio favors no change other than as noted in my dictated progress note. Diagnosis: Problems: (1) Anxiety disorder (2) Major neurocognitive disorder (3) Major depressive disorder, recurrent episode (4) Frontotemporal dementia with behavioral disturbance YONI LAURA MD Sep 11, 2017 21:15
--- NOTE | 2017-09-11 22:23 | PN ---
DATE: 09/09/2017 This is a late entry 09/09/2017 covers elements not covered in my initial note. SUBJECTIVE: I met with the patient in the evening. The patient slept 5-3/4 hours previous evening, has been more compliant, less paranoid. Has not had any explosive outbursts. REVIEW OF SYSTEMS: No CV, , pulmonary, eye system symptoms on review. MENTAL STATUS EXAM: Oriented reasonably. Speech is coherent, abstraction fair, computation impaired, language function intact, attention span short. Mood and affect overall showing improved lability. LABORATORY DATA: Reviewed. IMPRESSION: Major neurocognitive disorder, frontotemporal with depression, behavioral disturbance. Rest unchanged. PLAN: Continue psychotropics from initial note. Valproic acid level therapeutic at 63. MAN Lani LAURA MD DR: JAMES/nohelia JOB#: [id number] / [id number]
--- NOTE | 2017-09-11 22:32 | PN ---
DATE: 09/05/2017 PSYCHIATRIC PROGRESS NOTE This late entry 09/10/2017 covers elements not covered in my initial note. SUBJECTIVE: I met with the patient in the evening. The patient slept 7 hours previous evening, has had a good day per nursing report. Mood is somewhat better. He is more compliant socially, showing improved impulse control. I met with him individually. No CV, , pulmonary, eye, ENT system symptoms on review. MENTAL STATUS EXAM: Oriented to himself and situation. Speech is coherent, abstraction fair, computation impaired, language function intact. Mood and affect showing improvement. LABORATORY DATA: Reviewed. IMPRESSION: Unchanged from initial note. PLAN: No change from initial note. Valproic acid level is therapeutic. YONI LAURA MD DR: JAMES/nohelia JOB#: [id number] / [id number]
[2017-09-12] MEDS: LEVOTHYROXINE 175 MCG TABLET PO SCH (05:41)
[2017-09-12 06:57] VITALS: BP 108/66
[2017-09-12] MEDS: DICLOFENAC SODIUM 1% TOPICAL GEL 100GM TUBE. TP PRN (08:47)
[2017-09-12] MEDS: CALCIUM CARB/VIT D3 500/200 TABLET PO SCH ×2 (08:48→17:38)
[2017-09-12] MEDS: RIVAROXABAN 15 MG TABLET. PO SCH (08:48)
[2017-09-12] MEDS: MAGNESIUM OXIDE 400 MG TABLET PO SCH (08:48)
[2017-09-12] MEDS: DIVALPROEX ER 250 MG TAB.ER.24H. PO SCH ×2 (08:48→19:49)
[2017-09-12] MEDS: DOCUSATE SODIUM 100 MG CAPSULE PO SCH ×2 (08:48→19:47)
[2017-09-12] MEDS: UBIDECARENONE 50 MG CAPSULE. PO SCH (08:48)
[2017-09-12] MEDS: SERTRALINE 50 MG TABLET. PO SCH (08:48)
[2017-09-12] MEDS: SENNOSIDES 8.6 MG TABLET PO SCH (08:49)
[2017-09-12] MEDS: MEMANTINE 10 MG TABLET. PO SCH ×2 (08:49→19:50)
[2017-09-12] MEDS: PANTOPRAZOLE 40 MG TABLET. PO SCH (08:49)
[2017-09-12] MEDS: MULTIVITAMIN with MINERAL TABLET. PO SCH (08:49)
[2017-09-12] MEDS: FENOFIBRATE NANOCRYSTALLIZED 48 MG TABLET PO SCH (08:49)
[2017-09-12] MEDS: KETOCONAZOLE 2% SHAMPOO 120ML BOTTLE. TP SCH (08:51)
[2017-09-12 16:25] VITALS: BP 116/78
[2017-09-12] MEDS: MELATONIN 3 MG TABLET PO SCH (19:47)
[2017-09-12] MEDS: DIVALPROEX ER 500 MG TAB.ER.24H PO SCH (19:48)
[2017-09-12] MEDS: QUEtiapine 50 MG TABLET. PO SCH (19:50)
[2017-09-12] MEDS: traZODone 50 MG TABLET. PO SCH (19:50)
--- NOTE | 2017-09-12 20:42 | PDOC ---
Exam Note: Jean Marie Note: Please also refer to the separate dictated note~for this date of service dictated separately.~Patient seen individually. Discussed the patient with Nursing staff reviewed the chart.~Reviewed interim history and current functioning. Reviewed vital signs,~Labs/ Radiology~and current medications noted below. Continue current treatment with the changes noted in the dictated addendum note Assessment: Vital Signs: Vital Signs Date Time Temp Pulse Resp B/P (MAP) Pulse Ox O2 Delivery O2 Flow Rate FiO2 09/12/17 16:25 97.9 76 18 116/78 (91) 97 09/11/17 06:42 Room Air I&O Intake and Output 09/12/17 06:59 Intake Total 1200 ml Balance 1200 ml Intake Oral 1200 ml # Bowel Movements 1 Current Medications: Meds: Current Medications Acetaminophen (Tylenol) 650 mg PRN Q6HRS PRN PO PAIN / TEMP Last administered on 09/08/17at 20:18; Start 09/05/17 at 19:00 Multi-Ingredient Ointment (Analgesic [place]) 1 corina PRN QID PRN TP MUSCLE PAIN; Start 09/05/17 at 19:00 Al Hydroxide/Mg Hydroxide (Mylanta Plus Xs) 15 ml PRN AFTMEALHC PRN PO DYSPEPSIA; Start 09/05/17 at 19:00 Magnesium Hydroxide (Milk Of Magnesia) 2,400 mg PRN QHS PRN PO CONSTIPATION; Start 09/05/17 at 19:00 Citalopram Hydrobromide (CeleXA) 20 mg DAILY PO Last administered on 09/06/17at 08:12; Start 09/06/17 at 09:00; Stop 09/06/17 at 16:29; Status DC Donepezil HCl (Aricept) 5 mg DAILY PO Last administered on 09/08/17at 07:40; Start 09/06/17 at 09:00; Stop 09/09/17 at 08:59; Status DC Divalproex Sodium (Depakote Er) 500 mg DAILY PO Last administered on 09/12/17at 08:48; Start 09/06/17 at 09:00 Divalproex Sodium (Depakote Er) 500 mg QHS PO Last administered on 09/12/17at 19: 48; Start 09/05/17 at 21:00 Melatonin 3 mg QHS PO Last administered on 09/12/17 19:47; Start 09/05/17 at 21 :00 Memantine (Namenda) 10 mg BID PO Last administered on 09/12/17 19:50; Start at 21:00 Quetiapine Fumarate (SEROquel) 50 mg QHS PO Last administered on 09/06/17 19:43 ; Start 09/05/17 at 21:00; Stop 09/07/17 at 11:43; Status DC Trazodone HCl (Desyrel) 50 mg QHS PO Last administered on 09/12/17 19:50; Start 09/05/17 at 21:00 Divalproex Sodium (Depakote Er) 250 mg QHS PO Last administered on 09/12/17 19: 49; Start 09/05/17 at 21:00 Diclofenac Sodium (Voltaren) 4 corina PRN TID PRN TP PAIN Last administered on 09/12 08:47; Start 09/05/17 at 20:00 Ketoconazole (Nizoral 2% Shampoo) 1 corina DAILY TP Last administered on 09/12/17 08:51; Start 09/06/17 at 09:00 Levothyroxine Sodium (Synthroid) 175 mcg DAILY07 PO Last administered on 05:16; Start 09/06/17 at 07:00; Stop 09/08/17 at 06:56; Status DC Rivaroxaban (Xarelto) 15 mg DAILY PO Last administered on 09/12/17 08:48; Start 09/06/17 at 09:00 Calcium/Vitamin D (Oscal D 500mg/ 200uts) 1 tab BIDWMEALS PO Last administered on 09/12/17 17:38; Start 09/06/17 at 08:00 Docusate Sodium (Colace) 100 mg BID PO Last administered on 09/12/17 19:47; Start 09/05/17 at 21:00 Fenofibrate (Tricor) 48 mg DAILY PO Last administered on 09/12/17 08:49; Start 09/06/17 at 09:00 Hydrocortisone (Cortaid) 1 corina BID TP Last administered on 09/07/17 20:33; Start 09/05/17 at 21:00; Stop 09/08/17 at 07:45; Status DC Magnesium Oxide (Magnesium Oxide) 400 mg DAILY PO Last administered on 08:48; Start 09/06/17 at 09:00 Multivitamins/ Calcium (Thera-M Plus) 1 tab DAILY PO Last administered on 08:49; Start 09/06/17 at 09:00 Pantoprazole Sodium (Protonix) 40 mg DAILYAC PO Last administered on 09/12/17 08:49; Start 09/06/17 at 07:30 Sennosides (Senna) 8.6 mg DAILY PO Last administered on 09/12/17 08:49; Start 09/06/17 at 09:00 Coenzyme Q10 (Coenzyme Q10) 100 mg DAILY PO Last administered on 09/12/17 08:48 ; Start 09/06/17 at 09:00 Sertraline HCl (Zoloft) 50 mg DAILY PO Last administered on 09/12/17 08:48; Start 09/07/17 at 09:00 Quetiapine Fumarate (SEROquel) 75 mg QHS PO Last administered on 09/12/17 19:50 ; Start 09/07/17 at 21:00 Levothyroxine Sodium (Synthroid) 175 mcg DAILY07 PO Last administered on 05:41; Start 09/09/17 at 07:00 Hydrocortisone (Cortaid) 1 corina PRN BID PRN TP RASH; Start 09/08/17 at 07:45 Active Scripts Active Reported Divalproex Sodium 250 Mg Tablet.dr 250 Mg PO QHS Vitamin B-12 (Cyanocobalamin (Vitamin B-12)) 1,000 Mcg Tablet 1,000 Mcg PO Ketoconazole 120 Ml Shampoo 1 Corina TP DAILY Voltaren (Diclofenac Sodium) 100 Gm Gel..gram. 4 Gm TP PRN TID PRN Multivitamins (Multivitamin) 1 Each Tablet 1 Tab PO DAILY Trazodone Hcl 50 Mg Tablet 50 Mg PO QHS Senna (Sennosides) 8.6 Mg Tablet 8.6 Mg PO DAILY Xarelto (Rivaroxaban) 10 Mg Tablet 15 Mg PO DAILY Seroquel (Quetiapine Fumarate) 50 Mg Tablet 50 Mg PO QHS Omeprazole 20 Mg Tablet.dr 20 Mg PO DAILY Namenda (Memantine Hcl) 10 Mg Tablet 10 Mg PO BID Melatonin 3 Mg Tablet 3 Mg PO DAILY Magnesium Oxide 400 Mg Tablet 400 Mg PO DAILY Levothyroxine Sodium 175 Mcg Tablet 175 Mcg PO DAILY07 Cortizone-10 1% Creme (Hydrocortisone/Aloe Vera) 28 Gm Cream..g. 1 [place]ina TP BID Tricor (Fenofibrate Nanocrystallized) 48 Mg Tablet 48 Mg PO DAILY Donepezil Hcl 5 Mg Tablet 5 Mg PO DAILY 5 Days Docusate Sodium 100 Mg Capsule 100 Mg PO BID Depakote (Divalproex Sodium) 500 Mg Tablet.dr 500 Mg PO BID Coenzyme Q10 (Ubidecarenone) 100 Mg Capsule 100 Mg PO DAILY Citalopram Hbr (Citalopram Hydrobromide) 20 Mg Tablet 20 Mg PO DAILY Calcium + Vitamin D Tablet (Calcium Carbonate/Vitamin D3) 1 Each Tablet 1 Tab PO BID I have reviewed the current psychotropics carefully including drug interactions. Risk benefit ratio favors no change other than as noted in my dictated progress note. Diagnosis: Problems: (1) Anxiety disorder (2) Major neurocognitive disorder (3) Major depressive disorder, recurrent episode (4) Frontotemporal dementia with behavioral disturbance YONI LAURA MD Sep 12, 2017 20:42
--- NOTE | 2017-09-13 03:19 | PN ---
DATE: 09/11/2017 This is a late entry, 09/11/2017, covers the elements not covered in my initial note. SUBJECTIVE: I met with the patient in the evening. The patient slept 5 hours the previous evening, compliant with medications, more appropriate on the unit, less anxious, social skills somewhat improved. Processed this at some length individually. REVIEW OF SYSTEMS: No CV, , pulmonary, eye system symptoms on review. MENTAL STATUS EXAM: Oriented reasonably. Speech is coherent, abstraction fair, computation impaired, language function intact, social skills poor. Mood and affect somewhat anxious, but less labile. No suicidal or homicidal ideation. LABORATORY DATA: Reviewed. IMPRESSION: Major neurocognitive disorder, early frontotemporal impulse control disorder, unspecified. Rest unchanged. PLAN: No change from initial note, continue psychotropics from initial note. MAN Lani LAURA MD DR: JAMES/nohelia JOB#: [id number] / [id number]
[2017-09-13] MEDS: LEVOTHYROXINE 175 MCG TABLET PO SCH (06:00)
[2017-09-13 06:01] VITALS: BP 129/68
[2017-09-13] MEDS: KETOCONAZOLE 2% SHAMPOO 120ML BOTTLE. TP SCH ×2 (08:47→08:50)
[2017-09-13] MEDS: MEMANTINE 10 MG TABLET. PO SCH ×2 (08:48→20:18)
[2017-09-13] MEDS: CALCIUM CARB/VIT D3 500/200 TABLET PO SCH ×2 (08:48→17:32)
[2017-09-13] MEDS: DOCUSATE SODIUM 100 MG CAPSULE PO SCH ×2 (08:48→20:17)
[2017-09-13] MEDS: SERTRALINE 50 MG TABLET. PO SCH (08:48)
[2017-09-13] MEDS: UBIDECARENONE 50 MG CAPSULE. PO SCH (08:49)
[2017-09-13] MEDS: FENOFIBRATE NANOCRYSTALLIZED 48 MG TABLET PO SCH (08:49)
[2017-09-13] MEDS: DIVALPROEX ER 250 MG TAB.ER.24H. PO SCH ×2 (08:49→20:17)
[2017-09-13] MEDS: PANTOPRAZOLE 40 MG TABLET. PO SCH (08:50)
[2017-09-13] MEDS: SENNOSIDES 8.6 MG TABLET PO SCH (08:50)
[2017-09-13] MEDS: MULTIVITAMIN with MINERAL TABLET. PO SCH (08:50)
[2017-09-13] MEDS: MAGNESIUM OXIDE 400 MG TABLET PO SCH (08:50)
[2017-09-13] MEDS: RIVAROXABAN 15 MG TABLET. PO SCH (08:50)
[2017-09-13 16:27] VITALS: BP 133/79
[2017-09-13] MEDS: MELATONIN 3 MG TABLET PO SCH (20:17)
[2017-09-13] MEDS: DIVALPROEX ER 500 MG TAB.ER.24H PO SCH (20:18)
[2017-09-13] MEDS: traZODone 50 MG TABLET. PO SCH (20:18)
[2017-09-13] MEDS: QUEtiapine 50 MG TABLET. PO SCH (20:19)
--- NOTE | 2017-09-13 21:11 | PDOC ---
Exam Note: Jean Marie Note: Please also refer to the separate dictated note~for this date of service dictated separately.~Patient seen individually. Discussed the patient with Nursing staff reviewed the chart.~Reviewed interim history and current functioning. Reviewed vital signs,~Labs/ Radiology~and current medications noted below. Continue current treatment with the changes noted in the dictated addendum note Assessment: Vital Signs: Vital Signs Date Time Temp Pulse Resp B/P (MAP) Pulse Ox O2 Delivery O2 Flow Rate FiO2 09/13/17 16:27 97.1 70 18 133/79 (97) 94 09/11/17 06:42 Room Air I&O Intake and Output 09/13/17 06:59 Intake Total 2040 ml Balance 2040 ml Intake Oral 2040 ml # Bowel Movements 1 Current Medications: Meds: Current Medications Acetaminophen (Tylenol) 650 mg PRN Q6HRS PRN PO PAIN / TEMP Last administered on 09/08/17at 20:18; Start 09/05/17 at 19:00 Multi-Ingredient Ointment (Analgesic [place]) 1 corina PRN QID PRN TP MUSCLE PAIN; Start 09/05/17 at 19:00 Al Hydroxide/Mg Hydroxide (Mylanta Plus Xs) 15 ml PRN AFTMEALHC PRN PO DYSPEPSIA; Start 09/05/17 at 19:00 Magnesium Hydroxide (Milk Of Magnesia) 2,400 mg PRN QHS PRN PO CONSTIPATION; Start 09/05/17 at 19:00 Citalopram Hydrobromide (CeleXA) 20 mg DAILY PO Last administered on 09/06/17at 08:12; Start 09/06/17 at 09:00; Stop 09/06/17 at 16:29; Status DC Donepezil HCl (Aricept) 5 mg DAILY PO Last administered on 09/08/17at 07:40; Start 09/06/17 at 09:00; Stop 09/09/17 at 08:59; Status DC Divalproex Sodium (Depakote Er) 500 mg DAILY PO Last administered on 09/13/17at 08:49; Start 09/06/17 at 09:00 Divalproex Sodium (Depakote Er) 500 mg QHS PO Last administered on 09/13/17at 20: 18; Start 09/05/17 at 21:00 Melatonin 3 mg QHS PO Last administered on 09/13/17 20:17; Start 09/05/17 at 21 :00 Memantine (Namenda) 10 mg BID PO Last administered on 09/13/17 20:18; Start at 21:00 Quetiapine Fumarate (SEROquel) 50 mg QHS PO Last administered on 09/06/17 19:43 ; Start 09/05/17 at 21:00; Stop 09/07/17 at 11:43; Status DC Trazodone HCl (Desyrel) 50 mg QHS PO Last administered on 09/13/17 20:18; Start 09/05/17 at 21:00 Divalproex Sodium (Depakote Er) 250 mg QHS PO Last administered on 09/13/17 20: 17; Start 09/05/17 at 21:00 Diclofenac Sodium (Voltaren) 4 corina PRN TID PRN TP PAIN Last administered on 09/12 08:47; Start 09/05/17 at 20:00 Ketoconazole (Nizoral 2% Shampoo) 1 corina DAILY TP Last administered on 09/13/17 08:50; Start 09/06/17 at 09:00 Levothyroxine Sodium (Synthroid) 175 mcg DAILY07 PO Last administered on 05:16; Start 09/06/17 at 07:00; Stop 09/08/17 at 06:56; Status DC Rivaroxaban (Xarelto) 15 mg DAILY PO Last administered on 09/13/17 08:50; Start 09/06/17 at 09:00 Calcium/Vitamin D (Oscal D 500mg/ 200uts) 1 tab BIDWMEALS PO Last administered on 09/13/17 17:32; Start 09/06/17 at 08:00 Docusate Sodium (Colace) 100 mg BID PO Last administered on 09/13/17 20:17; Start 09/05/17 at 21:00 Fenofibrate (Tricor) 48 mg DAILY PO Last administered on 09/13/17 08:49; Start 09/06/17 at 09:00 Hydrocortisone (Cortaid) 1 corina BID TP Last administered on 09/07/17 20:33; Start 09/05/17 at 21:00; Stop 09/08/17 at 07:45; Status DC Magnesium Oxide (Magnesium Oxide) 400 mg DAILY PO Last administered on 08:50; Start 09/06/17 at 09:00 Multivitamins/ Calcium (Thera-M Plus) 1 tab DAILY PO Last administered on 08:50; Start 09/06/17 at 09:00 Pantoprazole Sodium (Protonix) 40 mg DAILYAC PO Last administered on 09/13/17 08:50; Start 09/06/17 at 07:30 Sennosides (Senna) 8.6 mg DAILY PO Last administered on 09/13/17 08:50; Start 09/06/17 at 09:00 Coenzyme Q10 (Coenzyme Q10) 100 mg DAILY PO Last administered on 09/13/17 08:49 ; Start 09/06/17 at 09:00 Sertraline HCl (Zoloft) 50 mg DAILY PO Last administered on 09/13/17 08:48; Start 09/07/17 at 09:00 Quetiapine Fumarate (SEROquel) 75 mg QHS PO Last administered on 09/13/17 20:19 ; Start 09/07/17 at 21:00 Levothyroxine Sodium (Synthroid) 175 mcg DAILY07 PO Last administered on 06:00; Start 09/09/17 at 07:00 Hydrocortisone (Cortaid) 1 corina PRN BID PRN TP RASH; Start 09/08/17 at 07:45 Active Scripts Active Reported Divalproex Sodium 250 Mg Tablet.dr 250 Mg PO QHS Vitamin B-12 (Cyanocobalamin (Vitamin B-12)) 1,000 Mcg Tablet 1,000 Mcg PO Ketoconazole 120 Ml Shampoo 1 [place] TP DAILY Voltaren (Diclofenac Sodium) 100 Gm Gel..gram. 4 Gm TP PRN TID PRN Multivitamins (Multivitamin) 1 Each Tablet 1 Tab PO DAILY Trazodone Hcl 50 Mg Tablet 50 Mg PO QHS Senna (Sennosides) 8.6 Mg Tablet 8.6 Mg PO DAILY Xarelto (Rivaroxaban) 10 Mg Tablet 15 Mg PO DAILY Seroquel (Quetiapine Fumarate) 50 Mg Tablet 50 Mg PO QHS Omeprazole 20 Mg Tablet.dr 20 Mg PO DAILY Namenda (Memantine Hcl) 10 Mg Tablet 10 Mg PO BID Melatonin 3 Mg Tablet 3 Mg PO DAILY Magnesium Oxide 400 Mg Tablet 400 Mg PO DAILY Levothyroxine Sodium 175 Mcg Tablet 175 Mcg PO DAILY07 Cortizone-10 1% Creme (Hydrocortisone/Aloe Vera) 28 Gm Cream..g. 1 [place] TP BID Tricor (Fenofibrate Nanocrystallized) 48 Mg Tablet 48 Mg PO DAILY Donepezil Hcl 5 Mg Tablet 5 Mg PO DAILY 5 Days Docusate Sodium 100 Mg Capsule 100 Mg PO BID Depakote (Divalproex Sodium) 500 Mg Tablet.dr 500 Mg PO BID Coenzyme Q10 (Ubidecarenone) 100 Mg Capsule 100 Mg PO DAILY Citalopram Hbr (Citalopram Hydrobromide) 20 Mg Tablet 20 Mg PO DAILY Calcium + Vitamin D Tablet (Calcium Carbonate/Vitamin D3) 1 Each Tablet 1 Tab PO BID I have reviewed the current psychotropics carefully including drug interactions. Risk benefit ratio favors no change other than as noted in my dictated progress note. Diagnosis: Problems: (1) Anxiety disorder (2) Major neurocognitive disorder (3) Major depressive disorder, recurrent episode (4) Frontotemporal dementia with behavioral disturbance YONI LAURA MD Sep 13, 2017 21:11
--- NOTE | 2017-09-13 22:46 | PN ---
DATE: 09/05/2017 PSYCHIATRIC PROGRESS NOTE This is a late entry, 09/12, covers the elements not covered in my initial note. SUBJECTIVE: I met with the patient in the evening. The patient slept 6-3/4 hours previous evening. A little anxious at times, but less irritable. His wedding anniversary is 09/12 and he is a little pensive about this at times, but did not talk with staff about it. REVIEW OF SYSTEMS: No CV, , pulmonary, eye, ENT system symptoms on review. MENTAL STATUS EXAM: Oriented to himself and situation. Speech has some latency, coherent. Abstraction fair, computation impaired, language function intact. Mood and affect less labile, less anxious. LABORATORY DATA: Reviewed. IMPRESSION: Major neurocognitive disorder, early frontotemporal with depression, delusion, behavioral disturbance. Rest unchanged. PLAN: No change from a psychiatric standpoint. MAN Lani LAURA MD DR: JAMES/nohelia JOB#: [id number] / [id number]
[2017-09-14 05:59] LABS: BASO # 0.1 x10^3/uL (0.0-0.2); BASO % 1 % (0-3); EOS # 0.3 x10^3/uL (0.0-0.7); EOS % 4 % (0-3); HEMATOCRIT 39.5 % (39.0-53.0); HEMOGLOBIN 13.7 g/dL (13.0-17.5); LYMPH # 2.2 x10^3/uL (1.0-4.8); LYMPH % 29 % (24-48); MEAN CORPUSCULAR HEMOGLOBIN 33 pg (25-35); MEAN CORPUSCULAR HGB CONC 35 g/dL (31-37); MEAN CORPUSCULAR VOLUME 94 fL (79-100); MONO # 0.9 x10^3/uL (0.0-1.1); MONO % 12 % (0-9); NEUT # 4.1 x10^3uL (1.8-7.7); NEUT % 55 % (31-73); PLATELET COUNT 163 x10^3/uL (140-400); RED CELL DISTRIBUTION WIDTH 13.3 % (11.5-14.5); WHITE BLOOD COUNT 7.5 x10^3/uL (4.0-11.0)
[2017-09-14] MEDS: LEVOTHYROXINE 175 MCG TABLET PO SCH (06:04)
[2017-09-14 06:14] LABS: ALBUMIN 2.6 g/dL (3.4-5.0); ALBUMIN/GLOBULIN RATIO 0.8 (1.0-1.7); ALK PHOS 55 U/L (46-116); ALT (SGPT) 27 U/L (16-63); ANION GAP 8 (6-14); AST (SGOT) 30 U/L (15-37); BLOOD UREA NITROGEN 24 mg/dL (8-26); BUN/CREATININE RATIO 15 (6-20); CALCIUM 8.7 mg/dL (8.5-10.1); CARBON DIOXIDE 28 mmol/L (21-32); CHLORIDE 107 mmol/L (98-107); CREATININE 1.6 mg/dL (0.7-1.3); GFR 43.3; GLUCOSE 77 mg/dL (70-99); POTASSIUM 4.2 mmol/L (3.5-5.1); SODIUM 143 mmol/L (136-145); TOTAL BILIRUBIN 0.4 mg/dL (0.2-1.0); TOTAL PROTEIN 5.9 g/dL (6.4-8.2); VAL ACID 66 mcg/mL (50-100)
[2017-09-14 06:27] VITALS: BP 124/65
[2017-09-14] MEDS: SERTRALINE 50 MG TABLET. PO SCH (09:00)
[2017-09-14] MEDS: FENOFIBRATE NANOCRYSTALLIZED 48 MG TABLET PO SCH (09:00)
[2017-09-14] MEDS: DOCUSATE SODIUM 100 MG CAPSULE PO SCH ×2 (09:01→19:43)
[2017-09-14] MEDS: CALCIUM CARB/VIT D3 500/200 TABLET PO SCH ×2 (09:01→18:09)
[2017-09-14] MEDS: RIVAROXABAN 15 MG TABLET. PO SCH (09:01)
[2017-09-14] MEDS: DIVALPROEX ER 250 MG TAB.ER.24H. PO SCH ×2 (09:02→19:38)
[2017-09-14] MEDS: MULTIVITAMIN with MINERAL TABLET. PO SCH (09:02)
[2017-09-14] MEDS: MEMANTINE 10 MG TABLET. PO SCH ×2 (09:02→19:43)
[2017-09-14] MEDS: UBIDECARENONE 50 MG CAPSULE. PO SCH (09:03)
[2017-09-14] MEDS: SENNOSIDES 8.6 MG TABLET PO SCH (09:03)
[2017-09-14] MEDS: PANTOPRAZOLE 40 MG TABLET. PO SCH (09:03)
[2017-09-14] MEDS: KETOCONAZOLE 2% SHAMPOO 120ML BOTTLE. TP SCH (09:03)
[2017-09-14] MEDS: MAGNESIUM OXIDE 400 MG TABLET PO SCH (09:03)
[2017-09-14] MEDS: DICLOFENAC SODIUM 1% TOPICAL GEL 100GM TUBE. TP PRN ×2 (13:15→22:49)
[2017-09-14 15:48] VITALS: BP 118/75
[2017-09-14] MEDS: traZODone 50 MG TABLET. PO SCH (19:38)
[2017-09-14] MEDS: MELATONIN 3 MG TABLET PO SCH (19:38)
[2017-09-14] MEDS: DIVALPROEX ER 500 MG TAB.ER.24H PO SCH (19:38)
[2017-09-14] MEDS: QUEtiapine 50 MG TABLET. PO SCH (19:38)
--- NOTE | 2017-09-14 20:30 | PDOC ---
Exam Note: Jean Marie Note: Please also refer to the separate dictated note~for this date of service dictated separately.~Patient seen individually. Discussed the patient with Nursing staff reviewed the chart.~Reviewed interim history and current functioning. Reviewed vital signs,~Labs/ Radiology~and current medications noted below. Continue current treatment with the changes noted in the dictated addendum note Assessment: Vital Signs: Vital Signs Date Time Temp Pulse Resp B/P (MAP) Pulse Ox O2 Delivery O2 Flow Rate FiO2 09/14/17 15:48 97.7 65 17 118/75 (89) 99 Room Air I&O Intake and Output 09/14/17 07:00 Intake Total 1560 ml Balance 1560 ml Intake Oral 1560 ml Labs: Laboratory Tests Test 09/14/17 05:52 White Blood Count 7.5 x10^3/uL (4.0-11.0) Red Blood Count 4.20 x10^6/uL (4.30-5.70) L Hemoglobin 13.7 g/dL (13.0-17.5) Hematocrit 39.5 % (39.0-53.0) Mean Corpuscular Volume 94 fL (79-100) Mean Corpuscular Hemoglobin 33 pg (25-35) Mean Corpuscular Hemoglobin Concent 35 g/dL (31-37) Red Cell Distribution Width 13.3 % (11.5-14.5) Platelet Count 163 x10^3/uL (140-400) Neutrophils (%) (Auto) 55 % (31-73) Lymphocytes (%) (Auto) 29 % (24-48) Monocytes (%) (Auto) 12 % (0-9) H Eosinophils (%) (Auto) 4 % (0-3) H Basophils (%) (Auto) 1 % (0-3) Neutrophils # (Auto) 4.1 x10^3uL (1.8-7.7) Lymphocytes # (Auto) 2.2 x10^3/uL (1.0-4.8) Monocytes # (Auto) 0.9 x10^3/uL (0.0-1.1) Eosinophils # (Auto) 0.3 x10^3/uL (0.0-0.7) Basophils # (Auto) 0.1 x10^3/uL (0.0-0.2) Sodium Level 143 mmol/L (136-145) Potassium Level 4.2 mmol/L (3.5-5.1) Chloride Level 107 mmol/L (98-107) Carbon Dioxide Level 28 mmol/L (21-32) Anion Gap 8 (6-14) Blood Urea Nitrogen 24 mg/dL (8-26) Creatinine 1.6 mg/dL (0.7-1.3) H Estimated GFR (Cockcroft-Gault) 43.3 BUN/Creatinine Ratio 15 (6-20) Glucose Level 77 mg/dL (70-99) Calcium Level 8.7 mg/dL (8.5-10.1) Total Bilirubin 0.4 mg/dL (0.2-1.0) Aspartate Amino Transferase (AST) 30 U/L (15-37) Alanine Aminotransferase (ALT) 27 U/L (16-63) Alkaline Phosphatase 55 U/L (46-116) Total Protein 5.9 g/dL (6.4-8.2) L Albumin 2.6 g/dL (3.4-5.0) L Albumin/Globulin Ratio 0.8 (1.0-1.7) L Valproic Acid Level 66 mcg/mL (50-100) Valproic Acid Last Dose Date 09/13/2017 Valproic Acid Last Dose Time 2100 Current Medications: Meds: Current Medications Acetaminophen (Tylenol) 650 mg PRN Q6HRS PRN PO PAIN / TEMP Last administered on 09/08/17at 20:18; Start 09/05/17 at 19:00 Multi-Ingredient Ointment (Analgesic [place]) 1 corina PRN QID PRN TP MUSCLE PAIN; Start 09/05/17 at 19:00 Al Hydroxide/Mg Hydroxide (Mylanta Plus Xs) 15 ml PRN AFTMEALHC PRN PO DYSPEPSIA; Start 09/05/17 at 19:00 Magnesium Hydroxide (Milk Of Magnesia) 2,400 mg PRN QHS PRN PO CONSTIPATION; Start 09/05/17 at 19:00 Citalopram Hydrobromide (CeleXA) 20 mg DAILY PO Last administered on 09/06/17at 08:12; Start 09/06/17 at 09:00; Stop 09/06/17 at 16:29; Status DC Donepezil HCl (Aricept) 5 mg DAILY PO Last administered on 09/08/17 07:40; Start 09/06/17 at 09:00; Stop 09/09/17 at 08:59; Status DC Divalproex Sodium (Depakote Er) 500 mg DAILY PO Last administered on 09/14/17 09:02; Start 09/06/17 at 09:00 Divalproex Sodium (Depakote Er) 500 mg QHS PO Last administered on 09/14/17 19: 38; Start 09/05/17 at 21:00 Melatonin 3 mg QHS PO Last administered on 09/14/17 19:38; Start 09/05/17 at 21 :00 Memantine (Namenda) 10 mg BID PO Last administered on 09/14/17 19:43; Start at 21:00 Quetiapine Fumarate (SEROquel) 50 mg QHS PO Last administered on 09/06/17 19:43 ; Start 09/05/17 at 21:00; Stop 09/07/17 at 11:43; Status DC Trazodone HCl (Desyrel) 50 mg QHS PO Last administered on 09/14/17 19:38; Start 09/05/17 at 21:00 Divalproex Sodium (Depakote Er) 250 mg QHS PO Last administered on 09/14/17 19: 38; Start 09/05/17 at 21:00 Diclofenac Sodium (Voltaren) 4 corina PRN TID PRN TP PAIN Last administered on 09/14 13:15; Start 09/05/17 at 20:00 Ketoconazole (Nizoral 2% Shampoo) 1 corina DAILY TP Last administered on 09/13/17 08:50; Start 09/06/17 at 09:00 Levothyroxine Sodium (Synthroid) 175 mcg DAILY07 PO Last administered on 05:16; Start 09/06/17 at 07:00; Stop 09/08/17 at 06:56; Status DC Rivaroxaban (Xarelto) 15 mg DAILY PO Last administered on 09/14/17 09:01; Start 09/06/17 at 09:00 Calcium/Vitamin D (Oscal D 500mg/ 200uts) 1 tab BIDWMEALS PO Last administered on 09/14/17 18:09; Start 09/06/17 at 08:00 Docusate Sodium (Colace) 100 mg BID PO Last administered on 09/14/17 19:43; Start 09/05/17 at 21:00 Fenofibrate (Tricor) 48 mg DAILY PO Last administered on 09/14/17 09:00; Start 09/06/17 at 09:00 Hydrocortisone (Cortaid) 1 corina BID TP Last administered on 09/07/17 20:33; Start 09/05/17 at 21:00; Stop 09/08/17 at 07:45; Status DC Magnesium Oxide (Magnesium Oxide) 400 mg DAILY PO Last administered on 09:03; Start 09/06/17 at 09:00 Multivitamins/ Calcium (Thera-M Plus) 1 tab DAILY PO Last administered on 09:02; Start 09/06/17 at 09:00 Pantoprazole Sodium (Protonix) 40 mg DAILYAC PO Last administered on 09/14/17 09:03; Start 09/06/17 at 07:30 Sennosides (Senna) 8.6 mg DAILY PO Last administered on 09/14/17 09:03; Start 09/06/17 at 09:00 Coenzyme Q10 (Coenzyme Q10) 100 mg DAILY PO Last administered on 09/14/17 09:03 ; Start 09/06/17 at 09:00 Sertraline HCl (Zoloft) 50 mg DAILY PO Last administered on 09/14/17 09:00; Start 09/07/17 at 09:00 Quetiapine Fumarate (SEROquel) 75 mg QHS PO Last administered on 09/14/17 19:38 ; Start 09/07/17 at 21:00 Levothyroxine Sodium (Synthroid) 175 mcg DAILY07 PO Last administered on 06:04; Start 09/09/17 at 07:00 Hydrocortisone (Cortaid) 1 corina PRN BID PRN TP RASH; Start 09/08/17 at 07:45 Active Scripts Active Reported Divalproex Sodium 250 Mg Tablet.dr 250 Mg PO QHS Vitamin B-12 (Cyanocobalamin (Vitamin B-12)) 1,000 Mcg Tablet 1,000 Mcg PO Ketoconazole 120 Ml Shampoo 1 [place] TP DAILY Voltaren (Diclofenac Sodium) 100 Gm Gel..gram. 4 Gm TP PRN TID PRN Multivitamins (Multivitamin) 1 Each Tablet 1 Tab PO DAILY Trazodone Hcl 50 Mg Tablet 50 Mg PO QHS Senna (Sennosides) 8.6 Mg Tablet 8.6 Mg PO DAILY Xarelto (Rivaroxaban) 10 Mg Tablet 15 Mg PO DAILY Seroquel (Quetiapine Fumarate) 50 Mg Tablet 50 Mg PO QHS Omeprazole 20 Mg Tablet.dr 20 Mg PO DAILY Namenda (Memantine Hcl) 10 Mg Tablet 10 Mg PO BID Melatonin 3 Mg Tablet 3 Mg PO DAILY Magnesium Oxide 400 Mg Tablet 400 Mg PO DAILY Levothyroxine Sodium 175 Mcg Tablet 175 Mcg PO DAILY07 Cortizone-10 1% Creme (Hydrocortisone/Aloe Vera) 28 Gm Cream..g. 1 [place] TP BID Tricor (Fenofibrate Nanocrystallized) 48 Mg Tablet 48 Mg PO DAILY Donepezil Hcl 5 Mg Tablet 5 Mg PO DAILY 5 Days Docusate Sodium 100 Mg Capsule 100 Mg PO BID Depakote (Divalproex Sodium) 500 Mg Tablet.dr 500 Mg PO BID Coenzyme Q10 (Ubidecarenone) 100 Mg Capsule 100 Mg PO DAILY Citalopram Hbr (Citalopram Hydrobromide) 20 Mg Tablet 20 Mg PO DAILY Calcium + Vitamin D Tablet (Calcium Carbonate/Vitamin D3) 1 Each Tablet 1 Tab PO BID I have reviewed the current psychotropics carefully including drug interactions. Risk benefit ratio favors no change other than as noted in my dictated progress note. Diagnosis: Problems: (1) Anxiety disorder (2) Major neurocognitive disorder (3) Major depressive disorder, recurrent episode (4) Frontotemporal dementia with behavioral disturbance YONI LAURA MD Sep 14, 2017 20:30
[2017-09-14] MEDS ORDERED: ACET325T9 PO (23:52)
[2017-09-14] MEDS ORDERED: METH29OI TP (23:52)
[2017-09-14] MEDS ORDERED: DIVA500T17 PO (23:55)
[2017-09-14] MEDS ORDERED: SERT50TA PO (23:57)
[2017-09-15] MEDS ORDERED: MAG30ORA2 PO (00:01)
[2017-09-15] MEDS ORDERED: MAGN400O7 PO (00:05)
[2017-09-15] MEDS ORDERED: PANT40TA5 PO (00:06)
[2017-09-15] MEDS: LEVOTHYROXINE 175 MCG TABLET PO SCH (06:13)
[2017-09-15 06:19] VITALS: BP 93/44
[2017-09-15] MEDS: SERTRALINE 50 MG TABLET. PO SCH (07:38)
[2017-09-15] MEDS: DIVALPROEX ER 250 MG TAB.ER.24H. PO SCH ×2 (07:38→19:57)
[2017-09-15] MEDS: RIVAROXABAN 15 MG TABLET. PO SCH (07:38)
[2017-09-15] MEDS: SENNOSIDES 8.6 MG TABLET PO SCH (07:38)
[2017-09-15] MEDS: CALCIUM CARB/VIT D3 500/200 TABLET PO SCH ×2 (07:38→18:22)
[2017-09-15] MEDS: UBIDECARENONE 50 MG CAPSULE. PO SCH (07:38)
[2017-09-15] MEDS: MEMANTINE 10 MG TABLET. PO SCH ×2 (07:38→19:57)
[2017-09-15] MEDS: DOCUSATE SODIUM 100 MG CAPSULE PO SCH ×2 (07:38→19:58)
[2017-09-15] MEDS: MULTIVITAMIN with MINERAL TABLET. PO SCH (07:38)
[2017-09-15] MEDS: MAGNESIUM OXIDE 400 MG TABLET PO SCH (07:38)
[2017-09-15] MEDS: PANTOPRAZOLE 40 MG TABLET. PO SCH (07:38)
[2017-09-15] MEDS: FENOFIBRATE NANOCRYSTALLIZED 48 MG TABLET PO SCH (07:39)
[2017-09-15] MEDS: KETOCONAZOLE 2% SHAMPOO 120ML BOTTLE. TP SCH (07:39)
[2017-09-15 16:23] VITALS: BP 109/71
[2017-09-15] MEDS: QUEtiapine 50 MG TABLET. PO SCH (19:56)
[2017-09-15] MEDS: DIVALPROEX ER 500 MG TAB.ER.24H PO SCH (19:57)
[2017-09-15] MEDS: traZODone 50 MG TABLET. PO SCH (19:57)
[2017-09-15] MEDS: MELATONIN 3 MG TABLET PO SCH (19:58)
--- NOTE | 2017-09-15 20:55 | PDOC ---
Exam Note: Jean Marie Note: Please also refer to the separate dictated note~for this date of service dictated separately.~Patient seen individually. Discussed the patient with Nursing staff reviewed the chart.~Reviewed interim history and current functioning. Reviewed vital signs,~Labs/ Radiology~and current medications noted below. Continue current treatment with the changes noted in the dictated addendum note Assessment: Vital Signs: Vital Signs Date Time Temp Pulse Resp B/P (MAP) Pulse Ox O2 Delivery O2 Flow Rate FiO2 09/15/17 16:23 97.9 85 19 109/71 (84) 96 09/14/17 15:48 Room Air I&O Intake and Output 09/15/17 07:00 Intake Total 2040 ml Balance 2040 ml Intake Oral 2040 ml # Voids 1 Current Medications: Meds: Current Medications Acetaminophen (Tylenol) 650 mg PRN Q6HRS PRN PO PAIN / TEMP Last administered on 09/08/17at 20:18; Start 09/05/17 at 19:00 Multi-Ingredient Ointment (Analgesic [place]) 1 corina PRN QID PRN TP MUSCLE PAIN; Start 09/05/17 at 19:00 Al Hydroxide/Mg Hydroxide (Mylanta Plus Xs) 15 ml PRN AFTMEALHC PRN PO DYSPEPSIA; Start 09/05/17 at 19:00 Magnesium Hydroxide (Milk Of Magnesia) 2,400 mg PRN QHS PRN PO CONSTIPATION; Start 09/05/17 at 19:00 Citalopram Hydrobromide (CeleXA) 20 mg DAILY PO Last administered on 09/06/17at 08:12; Start 09/06/17 at 09:00; Stop 09/06/17 at 16:29; Status DC Donepezil HCl (Aricept) 5 mg DAILY PO Last administered on 09/08/17at 07:40; Start 09/06/17 at 09:00; Stop 09/09/17 at 08:59; Status DC Divalproex Sodium (Depakote Er) 500 mg DAILY PO Last administered on 09/15/17at 07:38; Start 09/06/17 at 09:00 Divalproex Sodium (Depakote Er) 500 mg QHS PO Last administered on 09/15/17at 19 :57; Start 09/05/17 at 21:00 Melatonin 3 mg QHS PO Last administered on 09/15/17 19:58; Start 09/05/17 at 21:00 Memantine (Namenda) 10 mg BID PO Last administered on 09/15/17 19:57; Start at 21:00 Quetiapine Fumarate (SEROquel) 50 mg QHS PO Last administered on 09/06/17 19:43 ; Start 09/05/17 at 21:00; Stop 09/07/17 at 11:43; Status DC Trazodone HCl (Desyrel) 50 mg QHS PO Last administered on 09/15/17 19:57; Start 09/05/17 at 21:00 Divalproex Sodium (Depakote Er) 250 mg QHS PO Last administered on 09/15/17 19 :57; Start 09/05/17 at 21:00 Diclofenac Sodium (Voltaren) 4 corina PRN TID PRN TP PAIN Last administered on 09/14 22:49; Start 09/05/17 at 20:00 Ketoconazole (Nizoral 2% Shampoo) 1 corina DAILY TP Last administered on 07:39; Start 09/06/17 at 09:00 Levothyroxine Sodium (Synthroid) 175 mcg DAILY07 PO Last administered on 05:16; Start 09/06/17 at 07:00; Stop 09/08/17 at 06:56; Status DC Rivaroxaban (Xarelto) 15 mg DAILY PO Last administered on 09/15/17 07:38; Start 09/06/17 at 09:00 Calcium/Vitamin D (Oscal D 500mg/ 200uts) 1 tab BIDWMEALS PO Last administered on 09/15/17 18:22; Start 09/06/17 at 08:00 Docusate Sodium (Colace) 100 mg BID PO Last administered on 09/15/17 19:58; Start 09/05/17 at 21:00 Fenofibrate (Tricor) 48 mg DAILY PO Last administered on 09/15/17 07:39; Start 09/06/17 at 09:00 Hydrocortisone (Cortaid) 1 corian BID TP Last administered on 09/07/17 20:33; Start 09/05/17 at 21:00; Stop 09/08/17 at 07:45; Status DC Magnesium Oxide (Magnesium Oxide) 400 mg DAILY PO Last administered on 07:38; Start 09/06/17 at 09:00 Multivitamins/ Calcium (Thera-M Plus) 1 tab DAILY PO Last administered on 07:38; Start 09/06/17 at 09:00 Pantoprazole Sodium (Protonix) 40 mg DAILYAC PO Last administered on 09/15/17 07:38; Start 09/06/17 at 07:30 Sennosides (Senna) 8.6 mg DAILY PO Last administered on 09/15/17 07:38; Start 09/06/17 at 09:00 Coenzyme Q10 (Coenzyme Q10) 100 mg DAILY PO Last administered on 09/15/17 07: 38; Start 09/06/17 at 09:00 Sertraline HCl (Zoloft) 50 mg DAILY PO Last administered on 09/15/17 07:38; Start 09/07/17 at 09:00 Quetiapine Fumarate (SEROquel) 75 mg QHS PO Last administered on 09/15/17 19: 56; Start 09/07/17 at 21:00 Levothyroxine Sodium (Synthroid) 175 mcg DAILY07 PO Last administered on 06:13; Start 09/09/17 at 07:00 Hydrocortisone (Cortaid) 1 corina PRN BID PRN TP RASH; Start 09/08/17 at 07:45 Active Scripts Active Reported Pantoprazole Sodium 40 Mg Tablet.dr 40 Mg PO DAILYAC Milk Of Magnesia (Magnesium Hydroxide) 400 Mg/5 Ml Oral.susp 2,400 Mg PO PRN QHS PRN Mag-Al Plus Xs Suspension (Mag Hydrox/Al Hydrox/Simeth) 30 Ml Oral.susp 15 Ml PO PRN AFTMEALHC PRN Zoloft (Sertraline Hcl) 50 Mg Tablet 50 Mg PO DAILY Divalproex Sodium Er (Divalproex Sodium) 500 Mg Tab.er.24h 500 Mg PO DAILY Tylenol (Acetaminophen) 325 Mg Tablet 650 Mg PO PRN Q6HRS PRN Analgesic [place] (Methyl Salicylate/Menthol) 28 Gm Oint...g. 1 Cor[place] TP PRN QID PRN Divalproex Sodium 250 Mg Tablet.dr 250 Mg PO QHS Vitamin B-12 (Cyanocobalamin (Vitamin B-12)) 1,000 Mcg Tablet 1,000 Mcg PO Ketoconazole 120 Ml Shampoo 1 [place] TP DAILY Voltaren (Diclofenac Sodium) 100 Gm Gel..gram. 4 Gm TP PRN TID PRN Multivitamins (Multivitamin) 1 Each Tablet 1 Tab PO DAILY Trazodone Hcl 50 Mg Tablet 50 Mg PO QHS Senna (Sennosides) 8.6 Mg Tablet 8.6 Mg PO DAILY Xarelto (Rivaroxaban) 10 Mg Tablet 15 Mg PO DAILY Seroquel (Quetiapine Fumarate) 50 Mg Tablet 50 Mg PO QHS Omeprazole 20 Mg Tablet.dr 20 Mg PO DAILY Namenda (Memantine Hcl) 10 Mg Tablet 10 Mg PO BID Melatonin 3 Mg Tablet 3 Mg PO DAILY Magnesium Oxide 400 Mg Tablet 400 Mg PO DAILY Levothyroxine Sodium 175 Mcg Tablet 175 Mcg PO DAILY07 Cortizone-10 1% Creme (Hydrocortisone/Aloe Vera) 28 Gm Cream..g. 1 [place] TP BID Tricor (Fenofibrate Nanocrystallized) 48 Mg Tablet 48 Mg PO DAILY Donepezil Hcl 5 Mg Tablet 5 Mg PO DAILY 5 Days Docusate Sodium 100 Mg Capsule 100 Mg PO BID Depakote (Divalproex Sodium) 500 Mg Tablet.dr 500 Mg PO BID Coenzyme Q10 (Ubidecarenone) 100 Mg Capsule 100 Mg PO DAILY Citalopram Hbr (Citalopram Hydrobromide) 20 Mg Tablet 20 Mg PO DAILY Calcium + Vitamin D Tablet (Calcium Carbonate/Vitamin D3) 1 Each Tablet 1 Tab PO BID I have reviewed the current psychotropics carefully including drug interactions. Risk benefit ratio favors no change other than as noted in my dictated progress note. Diagnosis: Problems: (1) Anxiety disorder (2) Major neurocognitive disorder (3) Major depressive disorder, recurrent episode (4) Frontotemporal dementia with behavioral disturbance YONI LAURA MD Sep 15, 2017 20:55
--- NOTE | 2017-09-15 21:16 | PN ---
DATE: 09/14/2017 PSYCHIATRIC PROGRESS NOTE This late entry 09/14/2017 covers elements not covered in my initial note. SUBJECTIVE: Met with the patient in the evening, staffed at a treatment team meeting with the entire team in the morning and his daughter attended this lengthy conference along with the patient. The patient slept 5 hours previous evening. Psychological testing completed by Dr. Torrez and the patient has been obsessing about it because Dr. Torrez has referred in the testing to some of his deficits consequent to the frontotemporal dementia. Despite this, he is reasonably cognitively intact as far as memory is concerned and ability to make decisions for himself and Dr. Torrez has suggested he may function well enough in an independent living arrangement and if this fails, perhaps assisted living may be an option. The patient continues to have some communication problems with his daughter, but indicated he wants to work on these outpatient. REVIEW OF SYSTEMS: No CV, , pulmonary, eye, ENT system symptoms on review. MENTAL STATUS EXAM: Reasonably oriented. Speech is coherent, abstraction fair, computation impaired, language function intact. Attention span short. No suicidal or homicidal ideation. Mood and affect still somewhat anxious but improved. LABORATORY DATA: Reviewed. IMPRESSION: Adjustment disorder with depressed mood and anxiety, major depressive disorder, in partial remission; history of frontotemporal dementia with mild cognitive deficits. Rest unchanged. PLAN: Continue psychotropics from initial note. MAN Lani LAURA MD DR: JAMES/nohelia JOB#: [id number] / [id number]
--- NOTE | 2017-09-15 21:28 | PN ---
DATE: 09/13/2017 PSYCHIATRIC PROGRESS NOTE This late entry 09/13/2017 covers elements not covered in my initial note. SUBJECTIVE: I met with the patient in the evening. The patient slept 5-1/4 hours previous evening. He reportedly had a telephone call with his daughter who was quite social, little more interactive. More insightful as we addressed his diagnosis and impulse control. Social deficits consequent to frontotemporal dementia. REVIEW OF SYSTEMS: No CV, , pulmonary, eye, ENT system symptoms on review. MENTAL STATUS EXAMINATION: Reasonably oriented. Speech is coherent, abstraction fair, computation impaired, language function intact, attention span short. Mood and affect showing improvement. No suicidal or homicidal ideation. LABORATORY DATA: Reviewed. IMPRESSION: Frontotemporal dementia, cognitive disorder, unspecified. Psychological testing has been completed by Dr. Torrez and generally he is cognitively reasonably intact despite the above diagnosis. He also has mood and anxiety symptoms, and diagnosis of major depressive disorder, impulse control disorder. PLAN: Continue psychotropics from initial note. MAN Lani LAURA MD DR: JAMES/nohelia JOB#: [id number] / [id number]
[2017-09-16] MEDS: LEVOTHYROXINE 175 MCG TABLET PO SCH (06:31)
[2017-09-16 06:50] VITALS: BP 115/82
[2017-09-16] MEDS: FENOFIBRATE NANOCRYSTALLIZED 48 MG TABLET PO SCH (08:34)
[2017-09-16] MEDS: MAGNESIUM OXIDE 400 MG TABLET PO SCH (08:34)
[2017-09-16] MEDS: DIVALPROEX ER 250 MG TAB.ER.24H. PO SCH ×2 (08:34→19:46)
[2017-09-16] MEDS: MEMANTINE 10 MG TABLET. PO SCH ×2 (08:34→19:46)
[2017-09-16] MEDS: CALCIUM CARB/VIT D3 500/200 TABLET PO SCH ×2 (08:34→17:17)
[2017-09-16] MEDS: DOCUSATE SODIUM 100 MG CAPSULE PO SCH ×2 (08:34→19:46)
[2017-09-16] MEDS: SERTRALINE 50 MG TABLET. PO SCH (08:35)
[2017-09-16] MEDS: SENNOSIDES 8.6 MG TABLET PO SCH (08:35)
[2017-09-16] MEDS: PANTOPRAZOLE 40 MG TABLET. PO SCH (08:35)
[2017-09-16] MEDS: KETOCONAZOLE 2% SHAMPOO 120ML BOTTLE. TP SCH (08:35)
[2017-09-16] MEDS: MULTIVITAMIN with MINERAL TABLET. PO SCH (08:35)
[2017-09-16] MEDS: UBIDECARENONE 50 MG CAPSULE. PO SCH (08:35)
[2017-09-16] MEDS: RIVAROXABAN 15 MG TABLET. PO SCH (08:35)
[2017-09-16 16:48] VITALS: BP 139/73
[2017-09-16] MEDS: DIVALPROEX ER 500 MG TAB.ER.24H PO SCH (19:45)
[2017-09-16] MEDS: QUEtiapine 50 MG TABLET. PO SCH (19:46)
[2017-09-16] MEDS: traZODone 50 MG TABLET. PO SCH (19:46)
[2017-09-16] MEDS: MELATONIN 3 MG TABLET PO SCH (19:46)
--- NOTE | 2017-09-16 23:13 | PDOC ---
Exam Note: Jean Marie Note: Please also refer to the separate dictated note~for this date of service dictated separately.~Patient seen individually. Discussed the patient with Nursing staff reviewed the chart.~Reviewed interim history and current functioning. Reviewed vital signs,~Labs/ Radiology~and current medications noted below. Continue current treatment with the changes noted in the dictated addendum note Assessment: Vital Signs: Vital Signs Date Time Temp Pulse Resp B/P (MAP) Pulse Ox O2 Delivery O2 Flow Rate FiO2 09/16/17 16:48 98.4 69 18 139/73 (95) 99 09/14/17 15:48 Room Air I&O Intake and Output 09/16/17 07:00 Intake Total 1200 ml Balance 1200 ml Intake Oral 1200 ml # Voids 1 Current Medications: Meds: Current Medications Acetaminophen (Tylenol) 650 mg PRN Q6HRS PRN PO PAIN / TEMP Last administered on 09/08/17at 20:18; Start 09/05/17 at 19:00 Multi-Ingredient Ointment (Analgesic [place]) 1 corina PRN QID PRN TP MUSCLE PAIN; Start 09/05/17 at 19:00 Al Hydroxide/Mg Hydroxide (Mylanta Plus Xs) 15 ml PRN AFTMEALHC PRN PO DYSPEPSIA; Start 09/05/17 at 19:00 Magnesium Hydroxide (Milk Of Magnesia) 2,400 mg PRN QHS PRN PO CONSTIPATION; Start 09/05/17 at 19:00 Citalopram Hydrobromide (CeleXA) 20 mg DAILY PO Last administered on 09/06/17at 08:12; Start 09/06/17 at 09:00; Stop 09/06/17 at 16:29; Status DC Donepezil HCl (Aricept) 5 mg DAILY PO Last administered on 09/08/17at 07:40; Start 09/06/17 at 09:00; Stop 09/09/17 at 08:59; Status DC Divalproex Sodium (Depakote Er) 500 mg DAILY PO Last administered on 09/16/17at 08:34; Start 09/06/17 at 09:00 Divalproex Sodium (Depakote Er) 500 mg QHS PO Last administered on 09/16/17at 19 :45; Start 09/05/17 at 21:00 Melatonin 3 mg QHS PO Last administered on 09/16/17 19:46; Start 09/05/17 at 21:00 Memantine (Namenda) 10 mg BID PO Last administered on 09/16/17 19:46; Start at 21:00 Quetiapine Fumarate (SEROquel) 50 mg QHS PO Last administered on 09/06/17 19:43 ; Start 09/05/17 at 21:00; Stop 09/07/17 at 11:43; Status DC Trazodone HCl (Desyrel) 50 mg QHS PO Last administered on 09/16/17 19:46; Start 09/05/17 at 21:00 Divalproex Sodium (Depakote Er) 250 mg QHS PO Last administered on 09/16/17 19 :46; Start 09/05/17 at 21:00 Diclofenac Sodium (Voltaren) 4 corina PRN TID PRN TP PAIN Last administered on 09/14 22:49; Start 09/05/17 at 20:00 Ketoconazole (Nizoral 2% Shampoo) 1 corina DAILY TP Last administered on 08:35; Start 09/06/17 at 09:00 Levothyroxine Sodium (Synthroid) 175 mcg DAILY07 PO Last administered on 05:16; Start 09/06/17 at 07:00; Stop 09/08/17 at 06:56; Status DC Rivaroxaban (Xarelto) 15 mg DAILY PO Last administered on 09/16/17 08:35; Start 09/06/17 at 09:00 Calcium/Vitamin D (Oscal D 500mg/ 200uts) 1 tab BIDWMEALS PO Last administered on 09/16/17 17:17; Start 09/06/17 at 08:00 Docusate Sodium (Colace) 100 mg BID PO Last administered on 09/16/17 19:46; Start 09/05/17 at 21:00 Fenofibrate (Tricor) 48 mg DAILY PO Last administered on 09/16/17 08:34; Start 09/06/17 at 09:00 Hydrocortisone (Cortaid) 1 corina BID TP Last administered on 09/07/17 20:33; Start 09/05/17 at 21:00; Stop 09/08/17 at 07:45; Status DC Magnesium Oxide (Magnesium Oxide) 400 mg DAILY PO Last administered on 08:34; Start 09/06/17 at 09:00 Multivitamins/ Calcium (Thera-M Plus) 1 tab DAILY PO Last administered on 08:35; Start 09/06/17 at 09:00 Pantoprazole Sodium (Protonix) 40 mg DAILYAC PO Last administered on 09/16/17 08:35; Start 09/06/17 at 07:30 Sennosides (Senna) 8.6 mg DAILY PO Last administered on 09/16/17 08:35; Start 09/06/17 at 09:00 Coenzyme Q10 (Coenzyme Q10) 100 mg DAILY PO Last administered on 09/16/17 08: 35; Start 09/06/17 at 09:00 Sertraline HCl (Zoloft) 50 mg DAILY PO Last administered on 09/16/17 08:35; Start 09/07/17 at 09:00 Quetiapine Fumarate (SEROquel) 75 mg QHS PO Last administered on 09/16/17 19: 46; Start 09/07/17 at 21:00 Levothyroxine Sodium (Synthroid) 175 mcg DAILY07 PO Last administered on 06:31; Start 09/09/17 at 07:00 Hydrocortisone (Cortaid) 1 corina PRN BID PRN TP RASH; Start 09/08/17 at 07:45 Active Scripts Active Reported Pantoprazole Sodium 40 Mg Tablet.dr 40 Mg PO DAILYAC Milk Of Magnesia (Magnesium Hydroxide) 400 Mg/5 Ml Oral.susp 2,400 Mg PO PRN QHS PRN Mag-Al Plus Xs Suspension (Mag Hydrox/Al Hydrox/Simeth) 30 Ml Oral.susp 15 Ml PO PRN AFTMEALHC PRN Zoloft (Sertraline Hcl) 50 Mg Tablet 50 Mg PO DAILY Divalproex Sodium Er (Divalproex Sodium) 500 Mg Tab.er.24h 500 Mg PO DAILY Tylenol (Acetaminophen) 325 Mg Tablet 650 Mg PO PRN Q6HRS PRN Analgesic [place] (Methyl Salicylate/Menthol) 28 Gm Oint...g. 1 [place] TP PRN QID PRN Divalproex Sodium 250 Mg Tablet.dr 250 Mg PO QHS Vitamin B-12 (Cyanocobalamin (Vitamin B-12)) 1,000 Mcg Tablet 1,000 Mcg PO Ketoconazole 120 Ml Shampoo 1 [place] TP DAILY Voltaren (Diclofenac Sodium) 100 Gm Gel..gram. 4 Gm TP PRN TID PRN Multivitamins (Multivitamin) 1 Each Tablet 1 Tab PO DAILY Trazodone Hcl 50 Mg Tablet 50 Mg PO QHS Senna (Sennosides) 8.6 Mg Tablet 8.6 Mg PO DAILY Xarelto (Rivaroxaban) 10 Mg Tablet 15 Mg PO DAILY Seroquel (Quetiapine Fumarate) 50 Mg Tablet 50 Mg PO QHS Omeprazole 20 Mg Tablet.dr 20 Mg PO DAILY Namenda (Memantine Hcl) 10 Mg Tablet 10 Mg PO BID Melatonin 3 Mg Tablet 3 Mg PO DAILY Magnesium Oxide 400 Mg Tablet 400 Mg PO DAILY Levothyroxine Sodium 175 Mcg Tablet 175 Mcg PO DAILY07 Cortizone-10 1% Creme (Hydrocortisone/Aloe Vera) 28 Gm Cream..g. 1 [place] TP BID Tricor (Fenofibrate Nanocrystallized) 48 Mg Tablet 48 Mg PO DAILY Donepezil Hcl 5 Mg Tablet 5 Mg PO DAILY 5 Days Docusate Sodium 100 Mg Capsule 100 Mg PO BID Depakote (Divalproex Sodium) 500 Mg Tablet.dr 500 Mg PO BID Coenzyme Q10 (Ubidecarenone) 100 Mg Capsule 100 Mg PO DAILY Citalopram Hbr (Citalopram Hydrobromide) 20 Mg Tablet 20 Mg PO DAILY Calcium + Vitamin D Tablet (Calcium Carbonate/Vitamin D3) 1 Each Tablet 1 Tab PO BID I have reviewed the current psychotropics carefully including drug interactions. Risk benefit ratio favors no change other than as noted in my dictated progress note. Diagnosis: Problems: (1) Anxiety disorder (2) Major neurocognitive disorder (3) Major depressive disorder, recurrent episode (4) Frontotemporal dementia with behavioral disturbance YONI LAURA MD Sep 16, 2017 23:13
[2017-09-17] MEDS: LEVOTHYROXINE 175 MCG TABLET PO SCH (06:44)
[2017-09-17 07:45] VITALS: BP 102/64
[2017-09-17] MEDS: PANTOPRAZOLE 40 MG TABLET. PO SCH (08:09)
[2017-09-17] MEDS: RIVAROXABAN 15 MG TABLET. PO SCH (08:09)
[2017-09-17] MEDS: SENNOSIDES 8.6 MG TABLET PO SCH (08:09)
[2017-09-17] MEDS: MULTIVITAMIN with MINERAL TABLET. PO SCH (08:09)
[2017-09-17] MEDS: DOCUSATE SODIUM 100 MG CAPSULE PO SCH ×2 (08:09→20:01)
[2017-09-17] MEDS: UBIDECARENONE 50 MG CAPSULE. PO SCH (08:09)
[2017-09-17] MEDS: SERTRALINE 50 MG TABLET. PO SCH (08:09)
[2017-09-17] MEDS: MAGNESIUM OXIDE 400 MG TABLET PO SCH (08:10)
[2017-09-17] MEDS: CALCIUM CARB/VIT D3 500/200 TABLET PO SCH ×2 (08:10→18:11)
[2017-09-17] MEDS: DIVALPROEX ER 250 MG TAB.ER.24H. PO SCH ×2 (08:10→20:00)
[2017-09-17] MEDS: MEMANTINE 10 MG TABLET. PO SCH ×2 (08:10→20:00)
[2017-09-17] MEDS: KETOCONAZOLE 2% SHAMPOO 120ML BOTTLE. TP SCH (08:12)
[2017-09-17] MEDS: FENOFIBRATE NANOCRYSTALLIZED 48 MG TABLET PO SCH (08:19)
[2017-09-17 16:10] VITALS: BP 113/66
[2017-09-17] MEDS: traZODone 50 MG TABLET. PO SCH (20:00)
[2017-09-17] MEDS: DIVALPROEX ER 500 MG TAB.ER.24H PO SCH (20:01)
[2017-09-17] MEDS: MELATONIN 3 MG TABLET PO SCH (20:01)
[2017-09-17] MEDS: QUEtiapine 50 MG TABLET. PO SCH (20:01)
--- NOTE | 2017-09-17 20:14 | PDOC ---
Exam Note: Jean Marie Note: Please also refer to the separate dictated note~for this date of service dictated separately.~Patient seen individually. Discussed the patient with Nursing staff reviewed the chart.~Reviewed interim history and current functioning. Reviewed vital signs,~Labs/ Radiology~and current medications noted below. Continue current treatment with the changes noted in the dictated addendum note Assessment: Vital Signs: Vital Signs Date Time Temp Pulse Resp B/P (MAP) Pulse Ox O2 Delivery O2 Flow Rate FiO2 09/17/17 16:10 97.0 67 16 113/66 (82) 100 09/14/17 15:48 Room Air I&O Intake and Output 09/17/17 06:59 Intake Total 960 ml Balance 960 ml Intake Oral 960 ml # Voids 1 Current Medications: Meds: Current Medications Acetaminophen (Tylenol) 650 mg PRN Q6HRS PRN PO PAIN / TEMP Last administered on 09/08/17at 20:18; Start 09/05/17 at 19:00 Multi-Ingredient Ointment (Analgesic [place]) 1 corina PRN QID PRN TP MUSCLE PAIN; Start 09/05/17 at 19:00 Al Hydroxide/Mg Hydroxide (Mylanta Plus Xs) 15 ml PRN AFTMEALHC PRN PO DYSPEPSIA; Start 09/05/17 at 19:00 Magnesium Hydroxide (Milk Of Magnesia) 2,400 mg PRN QHS PRN PO CONSTIPATION; Start 09/05/17 at 19:00 Citalopram Hydrobromide (CeleXA) 20 mg DAILY PO Last administered on 09/06/17at 08:12; Start 09/06/17 at 09:00; Stop 09/06/17 at 16:29; Status DC Donepezil HCl (Aricept) 5 mg DAILY PO Last administered on 09/08/17at 07:40; Start 09/06/17 at 09:00; Stop 09/09/17 at 08:59; Status DC Divalproex Sodium (Depakote Er) 500 mg DAILY PO Last administered on 09/17/17at 08:10; Start 09/06/17 at 09:00 Divalproex Sodium (Depakote Er) 500 mg QHS PO Last administered on 09/17/17at 20 :01; Start 09/05/17 at 21:00 Melatonin 3 mg QHS PO Last administered on 09/17/17 20:01; Start 09/05/17 at 21:00 Memantine (Namenda) 10 mg BID PO Last administered on 09/17/17 20:00; Start at 21:00 Quetiapine Fumarate (SEROquel) 50 mg QHS PO Last administered on 09/06/17 19:43 ; Start 09/05/17 at 21:00; Stop 09/07/17 at 11:43; Status DC Trazodone HCl (Desyrel) 50 mg QHS PO Last administered on 09/17/17 20:00; Start 09/05/17 at 21:00 Divalproex Sodium (Depakote Er) 250 mg QHS PO Last administered on 09/17/17 20 :00; Start 09/05/17 at 21:00 Diclofenac Sodium (Voltaren) 4 corina PRN TID PRN TP PAIN Last administered on 09/14 22:49; Start 09/05/17 at 20:00 Ketoconazole (Nizoral 2% Shampoo) 1 corina DAILY TP Last administered on 08:12; Start 09/06/17 at 09:00 Levothyroxine Sodium (Synthroid) 175 mcg DAILY07 PO Last administered on 05:16; Start 09/06/17 at 07:00; Stop 09/08/17 at 06:56; Status DC Rivaroxaban (Xarelto) 15 mg DAILY PO Last administered on 09/17/17 08:09; Start 09/06/17 at 09:00 Calcium/Vitamin D (Oscal D 500mg/ 200uts) 1 tab BIDWMEALS PO Last administered on 09/17/17 18:11; Start 09/06/17 at 08:00 Docusate Sodium (Colace) 100 mg BID PO Last administered on 09/17/17 20:01; Start 09/05/17 at 21:00 Fenofibrate (Tricor) 48 mg DAILY PO Last administered on 09/17/17 08:19; Start 09/06/17 at 09:00 Hydrocortisone (Cortaid) 1 corina BID TP Last administered on 09/07/17 20:33; Start 09/05/17 at 21:00; Stop 09/08/17 at 07:45; Status DC Magnesium Oxide (Magnesium Oxide) 400 mg DAILY PO Last administered on 08:10; Start 09/06/17 at 09:00 Multivitamins/ Calcium (Thera-M Plus) 1 tab DAILY PO Last administered on 08:09; Start 09/06/17 at 09:00 Pantoprazole Sodium (Protonix) 40 mg DAILYAC PO Last administered on 09/17/17 08:09; Start 09/06/17 at 07:30 Sennosides (Senna) 8.6 mg DAILY PO Last administered on 09/17/17 08:09; Start 09/06/17 at 09:00 Coenzyme Q10 (Coenzyme Q10) 100 mg DAILY PO Last administered on 09/17/17 08: 09; Start 09/06/17 at 09:00 Sertraline HCl (Zoloft) 50 mg DAILY PO Last administered on 09/17/17 08:09; Start 09/07/17 at 09:00 Quetiapine Fumarate (SEROquel) 75 mg QHS PO Last administered on 09/17/17at 20: 01; Start 09/07/17 at 21:00 Levothyroxine Sodium (Synthroid) 175 mcg DAILY07 PO Last administered on 06:44; Start 09/09/17 at 07:00 Hydrocortisone (Cortaid) 1 corina PRN BID PRN TP RASH; Start 09/08/17 at 07:45 Active Scripts Active Reported Pantoprazole Sodium 40 Mg Tablet.dr 40 Mg PO DAILYAC Milk Of Magnesia (Magnesium Hydroxide) 400 Mg/5 Ml Oral.susp 2,400 Mg PO PRN QHS PRN Mag-Al Plus Xs Suspension (Mag Hydrox/Al Hydrox/Simeth) 30 Ml Oral.susp 15 Ml PO PRN AFTMEALHC PRN Zoloft (Sertraline Hcl) 50 Mg Tablet 50 Mg PO DAILY Divalproex Sodium Er (Divalproex Sodium) 500 Mg Tab.er.24h 500 Mg PO DAILY Tylenol (Acetaminophen) 325 Mg Tablet 650 Mg PO PRN Q6HRS PRN Analgesic [place] (Methyl Salicylate/Menthol) 28 Gm Oint...g. 1 [place] TP PRN QID PRN Divalproex Sodium 250 Mg Tablet.dr 250 Mg PO QHS Vitamin B-12 (Cyanocobalamin (Vitamin B-12)) 1,000 Mcg Tablet 1,000 Mcg PO Ketoconazole 120 Ml Shampoo 1 [place] TP DAILY Voltaren (Diclofenac Sodium) 100 Gm Gel..gram. 4 Gm TP PRN TID PRN Multivitamins (Multivitamin) 1 Each Tablet 1 Tab PO DAILY Trazodone Hcl 50 Mg Tablet 50 Mg PO QHS Senna (Sennosides) 8.6 Mg Tablet 8.6 Mg PO DAILY Xarelto (Rivaroxaban) 10 Mg Tablet 15 Mg PO DAILY Seroquel (Quetiapine Fumarate) 50 Mg Tablet 50 Mg PO QHS Omeprazole 20 Mg Tablet.dr 20 Mg PO DAILY Namenda (Memantine Hcl) 10 Mg Tablet 10 Mg PO BID Melatonin 3 Mg Tablet 3 Mg PO DAILY Magnesium Oxide 400 Mg Tablet 400 Mg PO DAILY Levothyroxine Sodium 175 Mcg Tablet 175 Mcg PO DAILY07 Cortizone-10 1% Creme (Hydrocortisone/Aloe Vera) 28 Gm Cream..g. 1 [place] TP BID Tricor (Fenofibrate Nanocrystallized) 48 Mg Tablet 48 Mg PO DAILY Donepezil Hcl 5 Mg Tablet 5 Mg PO DAILY 5 Days Docusate Sodium 100 Mg Capsule 100 Mg PO BID Depakote (Divalproex Sodium) 500 Mg Tablet.dr 500 Mg PO BID Coenzyme Q10 (Ubidecarenone) 100 Mg Capsule 100 Mg PO DAILY Citalopram Hbr (Citalopram Hydrobromide) 20 Mg Tablet 20 Mg PO DAILY Calcium + Vitamin D Tablet (Calcium Carbonate/Vitamin D3) 1 Each Tablet 1 Tab PO BID I have reviewed the current psychotropics carefully including drug interactions. Risk benefit ratio favors no change other than as noted in my dictated progress note. Diagnosis: Problems: (1) Anxiety disorder (2) Major neurocognitive disorder (3) Major depressive disorder, recurrent episode (4) Frontotemporal dementia with behavioral disturbance YONI LAURA MD Sep 17, 2017 20:14
--- NOTE | 2017-09-17 23:43 | PN ---
DATE: 09/15/2017 PSYCHIATRIC PROGRESS NOTE This is a late entry, 09/15, covers elements not covered in my initial note. SUBJECTIVE: I met with the patient in the evening. Discussed with nursing staff several times during the day and with Social Service staff, Razia. Also communicated with Dr. Torrez and DNR nurse qual research manager regarding psychological testing recommendation for independent living versus assisted living. The patient was wanting to be discharged prematurely, plan was for Monday when daughter was supposed to take him and he was wanting to go to [place] for some activities with a friend. However, that arrangement did not follow through and he has agreed to continue hospitalization until Monday. REVIEW OF SYSTEMS: No CV, , pulmonary, eye, ENT system symptoms on review. MENTAL STATUS EXAM: Reasonably oriented. Speech is coherent, abstraction fair, computation impaired, language function intact. Mood and affect less anxious, labile, but somewhat obsessive, a little paranoid at times. No suicidal or homicidal ideation. IMPRESSION: Major neurocognitive disorder, early frontotemporal, though cognitive deficits are minimal, impulse control disorder. He has some obsessive compulsive features. PLAN: Continue psychotropics from initial note. Valproic acid level therapeutic at 66. MAN Lani LAURA MD DR: JAMES/nohelia JOB#: [id number] / [id number]
--- NOTE | 2017-09-17 23:46 | PN ---
DATE: 09/16/2017 PSYCHIATRIC PROGRESS NOTE This is a late entry, 09/16, covers elements not covered in my initial note. SUBJECTIVE: I met with the patient in the evening. The patient slept 5 hours previous evening. Nursing staff have noticed him approaching another female patient on the unit and that female patient has expressed some uncomfortableness about this. The patient has redirected, appropriately compliant with his medications. REVIEW OF SYSTEMS: No CV, , pulmonary, eye, ENT system symptoms on review. MENTAL STATUS EXAM: Reasonably oriented. Speech is coherent, abstraction fair, computation reasonable, language function intact. Mood and affect is improved. IMPRESSION: Unchanged from initial note. PLAN: No change from initial note. YONI LAURA MD DR: JAMES/nohelia JOB#: [id number] / [id number]
[2017-09-18 06:42] VITALS: BP 114/61
[2017-09-18] MEDS: LEVOTHYROXINE 175 MCG TABLET PO SCH (06:54)
[2017-09-18] MEDS: MULTIVITAMIN with MINERAL TABLET. PO SCH (08:32)
[2017-09-18] MEDS: RIVAROXABAN 15 MG TABLET. PO SCH (08:32)
[2017-09-18] MEDS: MAGNESIUM OXIDE 400 MG TABLET PO SCH (08:32)
[2017-09-18] MEDS: UBIDECARENONE 50 MG CAPSULE. PO SCH (08:32)
[2017-09-18] MEDS: PANTOPRAZOLE 40 MG TABLET. PO SCH (08:32)
[2017-09-18] MEDS: SENNOSIDES 8.6 MG TABLET PO SCH (08:32)
[2017-09-18] MEDS: DIVALPROEX ER 250 MG TAB.ER.24H. PO SCH (08:32)
[2017-09-18] MEDS: CALCIUM CARB/VIT D3 500/200 TABLET PO SCH (08:32)
[2017-09-18] MEDS: DOCUSATE SODIUM 100 MG CAPSULE PO SCH (08:32)
[2017-09-18] MEDS: MEMANTINE 10 MG TABLET. PO SCH (08:32)
[2017-09-18] MEDS: SERTRALINE 50 MG TABLET. PO SCH (08:32)
[2017-09-18] MEDS: KETOCONAZOLE 2% SHAMPOO 120ML BOTTLE. TP SCH (08:33)
[2017-09-18] MEDS: FENOFIBRATE NANOCRYSTALLIZED 48 MG TABLET PO SCH (08:33)
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
--- NOTE | 2017-09-19 12:45 | PN ---
DATE: 09/17/2017 PSYCHIATRIC PROGRESS NOTE This is a late entry, 09/17, covers elements not covered in my initial note. SUBJECTIVE: I met with the patient in the evening. Overall, the patient has done better. He slept 6 hours, more compliant, accepting of his transition plans. REVIEW OF SYSTEMS: No CV, , pulmonary, eye, ENT system symptoms on review. MENTAL STATUS EXAM: Reasonably oriented. Speech is coherent, abstraction fair, computation impaired, language function intact, attention span short. Mood and affect has improved. LABORATORY DATA: Reviewed. IMPRESSION: Unchanged from initial note. PLAN: No change from initial note. Transition to independent living, 09/18. YONI LAURA MD DR: JAMES/nohelia JOB#: [id number] / [id number]
== END 2017-09-18 14:14 | DRG 885 ==
LOC: ER 16:50 → GEROPSY 18:20
PROVIDERS: ADMIT Psychiatry & Neurology Psychiatry; ATTEND Psychiatry & Neurology Psychiatry
DX: F33.3 Major depressive disorder, recurrent, severe with psychotic symptoms (principal); F02.81 Dementia in other diseases classified elsewhere, unspecified severity, with behavioral disturbance; F01.51 Vascular dementia, unspecified severity, with behavioral disturbance; E78.5 Hyperlipidemia, unspecified; E89.0 Postprocedural hypothyroidism; F43.23 Adjustment disorder with mixed anxiety and depressed mood; F63.9 Impulse disorder, unspecified; G31.09 Other frontotemporal neurocognitive disorder; H91.90 Unspecified hearing loss, unspecified ear; I12.9 Hypertensive chronic kidney disease with stage 1 through stage 4 chronic kidney disease, or unspecified chronic kidney disease; Z96.642 Presence of left artificial hip joint; M81.0 Age-related osteoporosis without current pathological fracture; N18.9 Chronic kidney disease, unspecified; Z63.4 Disappearance and death of family member; Z79.899 Other long term (current) drug therapy; Z98.41 Cataract extraction status, right eye; Z98.42 Cataract extraction status, left eye
CPT/HCPCS: 36415; 80053; 80061; 80164; 81001; 82306; 82607; 83036; 83540; 83550; 83735; 84436; 84443; 84480; 85025; 86592; 93005; 97110; 97530; 99285-25